=== PATIENT | male | born 1945 | race Caucasian/White ===

== ENCOUNTER → 2016-08-23 | Outpatient (CLI) | payer OTHER ==
[~2016-08-23] MED LIST: ACET-1256 PO; AMLO-110 PO; ASPI-435 PO; ATOR-24 PO; CMD/25 PO; CMD25 PO; ENOX40IN SQ; FINA5TAB PO; FLM4 PO; LISI40TA PO; METO25TA56 PO; PRS5 PO; TAMS0.4C38 PO; WARF-285 PO
[2016-08-23 09:35] LABS: BASO % 0.8 %; BASO ABS # 0.05 K/uL (0-0.2); COMPLETE YES; EOS % 5.5 %; HEMATOCRIT 40.6 % (42-52); IG% 0.2 %; LYMPH % 22.5 %; LYMPH ABS # 1.39 K/uL (1.2-3.4); MEAN CELL VOLUME 91.6 fL (80-100); MEAN CORPUSCULAR HEMOGLOBIN 30.2 pg (25-34); MEAN PLATELET VOLUME 10.1 fL (7.4-10.4); MONO % 8.9 %; NEUT % 62.1 %; PLATELET COUNT 135 K/uL (130-400); RED BLOOD COUNT 4.43 M/uL (4.7-6.1); WHITE BLOOD COUNT 6.19 K/uL (4.8-10.8)
[2016-08-23 10:06] LABS: ALT/SGPT 25 U/L (12-78); AST/SGOT 20 U/L (15-37); BLOOD UREA NITROGEN 28 mg/dl (7-18); BUN/CREATININE RATIO 23.4 (10-20); CALCIUM 8.6 mg/dl (8.5-10.1); CARBON DIOXIDE 28 mmol/L (21-32); CHLORIDE 107 mmol/L (98-107); GLUCOSE 99 mg/dl (70-99); POTASSIUM 4.4 mmol/L (3.5-5.1); SODIUM 142 mmol/L (136-145)
[2016-08-23 10:16] LABS: ALB/GLOB RATIO 1.1 (0.9-2); ALKALINE PHOSPHATASE 91 U/L (45-117); CHOLESTEROL 137 mg/dl (0-200); CHOLESTEROL/HDL RATIO 3.6; HDL CHOLESTEROL 38 mg/dl; LDL CHOLESTEROL CALCULATED 57 mg/dl; TRIGLYCERIDES 208 mg/dl (0-150); URIC ACID 7.1 mg/dl (2.6-7.2); VERY LOW DENSITY LIPOPROT CALC 42 mg/dl
== END | disposition home or self-care (01) ==
LOC: C.LAB 08:48
PROVIDERS: ATTEND Internal Medicine Geriatric Medicine
DX: I10 Essential (primary) hypertension (principal); I25.10 Atherosclerotic heart disease of native coronary artery without angina pectoris; E78.5 Hyperlipidemia, unspecified; D64.9 Anemia, unspecified; M10.9 Gout, unspecified; D69.6 Thrombocytopenia, unspecified; Z51.81 Encounter for therapeutic drug level monitoring; Z79.01 Long term (current) use of anticoagulants

== ENCOUNTER → 2017-01-05 | Day surgery (SDC) | payer OTHER ==
[2016-12-22 07:42] VITALS: Ht 162.6 cm; Wt 100.0 kg
[~2017-01-05] VITALS: Ht 162.6 cm; Wt 100.0 kg
[~2017-01-05] MED LIST changes: -CMD/25 PO; -FLM4 PO; +LIDOCAINE HCL 2% 2 ML VIAL (20MG/ML) ONE; +PROPOFOL IV EMULSION 10 MG/ML 20 ML VIAL IV ONE; -PRS5 PO; +SODIUM CHLORIDE 0.9% 500ML 500 ML IV ONE; -WARF-285 PO
--- NOTE | 2017-01-05 12:57 | Endo History and Physical ---
History & Physical Date of Service: Jan 05, 2017. Chief Complaint: History of polyps Referring Physician: Meir Marte History of Present Illness 71 yo CM who presents for colonoscopy secondary to history of colon polyps. Past Medical History Fractures, Male Genitourinary Prob., Pulmonary Emboli, Reflux, Blood Dyscrasias , High Cholesterol, Sleep Apnea, Heart Disease, Hypertension, Thrombophlebitis Past Surgical History Hx Cardiac Surgery: Yes (HEART CATH, NO STENTS) Hx Internal Defibrillator: No Hx Pacemaker: No Hx Abdominal Surgery: Yes (HERNIA REPAIR X3) Hx of Implantable Prosthesis: No Hx Post-Op Nausea and Vomiting: No Hx Cancer Surgery: No Hx Thoracic Surgery: Yes ("RIB RENITA") Hx Orthopedic: Yes (LT KNEE SX) Hx Urinary Tract Surgery: No Family History Polyp Social History Smoking Status: Never Smoker Hx Substance Use: No Hx Alcohol Use: No Allergies Coded Allergies: Diphenhydramine (Verified Allergy, Unknown, LIGHTHEADEDNESS, 12/22/16) Acetaminophen (Verified Adverse Reaction, Mild, RASH, 12/22/16) Celecoxib (Verified Adverse Reaction, Mild, LIGHTHEADEDNESS, 12/22/16) Doxycycline (Verified Adverse Reaction, Mild, GI SYMPTOMS, 12/22/16) Propoxyphene (Verified Adverse Reaction, Mild, RASH, 12/22/16) Escitalopram (Unverified Adverse Reaction, Unknown, PT DOESN'T REMEMBER REACTION, 12/22/16) Venlafaxine (Unverified Adverse Reaction, Unknown, PT DOESN'T REMEMBER REACTION, 12/22/16) Current Medications Reported Home Medications Medications Dose Route/Sig Max Daily Dose Days Date Category Flomax (Tamsulosin Hcl) 0.4 Mg Cap 0.4 Mg PO QPM 12/22/16 Reported Proscar (Finasteride) 5 Mg Tab 5 Mg PO QAM 12/22/16 Reported Tylenol (Acetaminophen) 500 Mg Tab 1,000 Mg PO TID PRN 12/22/16 Reported Lopressor (Metoprolol Tartrate) 25 Mg Tab 25 Mg PO BID 12/09/15 Reported Aspirin 81 (Aspirin) 81 Mg Tab 81 Mg PO QPM 06/30/14 Reported Coumadin (Warfarin Sod) 2.5 Mg Tab 2.5 Mg PO QPM 06/30/14 Reported Zestril (Lisinopril) 40 Mg Tab 40 Mg PO QAM 01/15/11 Reported Lipitor (Atorvastatin Calcium) 40 Mg Tab 40 Mg PO QPM 01/15/11 Reported Norvasc (Amlodipine Besylate) 5 Mg Tab 5 Mg PO QPM 01/15/11 Reported Vital Signs Weight (Kilograms): 100 Height (Feet): 5 Height (Inches): 4 Physical Exam General Appearance: WD/WN, no apparent distress Respiratory/Chest: Auscultation: breath sounds normal Cardiovascular: Heart Auscultation: RRR Abdomen: Bowel Sounds: normal Inspection & Palpation: soft, non-distended, no tenderness, guarding & rebound Assessment and Plan Assessment: 71 yo CM who presents for colonoscopy secondary to history of colon polyps. Plan: Proceed with colonoscopy.
[2017-01-05 13:08] VITALS: TEMP 36.6
--- NOTE | 2017-01-05 14:08 | Discharge Instructions ---
Endoscopy Patient Instructions Date / Procedure(s) Performed Jan 05, 2017. Colonoscopy Allergy Information Coded Allergies: Diphenhydramine (Verified Allergy, Unknown, LIGHTHEADEDNESS, 12/22/16) Acetaminophen (Verified Adverse Reaction, Mild, RASH, 12/22/16) Celecoxib (Verified Adverse Reaction, Mild, LIGHTHEADEDNESS, 12/22/16) Doxycycline (Verified Adverse Reaction, Mild, GI SYMPTOMS, 12/22/16) Propoxyphene (Verified Adverse Reaction, Mild, RASH, 12/22/16) Escitalopram (Verified Adverse Reaction, Unknown, PT DOESN'T REMEMBER REACTION, 01/05/17) Venlafaxine (Verified Adverse Reaction, Unknown, PT DOESN'T REMEMBER REACTION, 01/05/17) Discharge Date / Findings Jan 05, 2017. Colon polyps Diverticulosis Internal hemorrhoids Medication Instructions Stopped Medication(s): last dose ASA yesterday,lat dose coumadin 12/31,bridged with Lovenox,last dose yesterday am OK to resume all medications today as prescribed Reported Home Medications Medications Dose Route/Sig Max Daily Dose Days Date Category Lovenox (Enoxaparin Sodium) 40 Mg/0.4 Ml Inj 40 Mg SQ DAILY 01/05/17 Reported Flomax (Tamsulosin Hcl) 0.4 Mg Cap 0.4 Mg PO QPM 12/22/16 Reported Proscar (Finasteride) 5 Mg Tab 5 Mg PO QAM 12/22/16 Reported Tylenol (Acetaminophen) 500 Mg Tab 1,000 Mg PO TID PRN 12/22/16 Reported Lopressor (Metoprolol Tartrate) 25 Mg Tab 25 Mg PO BID 12/09/15 Reported Aspirin 81 (Aspirin) 81 Mg Tab 81 Mg PO QPM 06/30/14 Reported Coumadin (Warfarin Sod) 2.5 Mg Tab 2.5 Mg PO QPM 06/30/14 Reported Zestril (Lisinopril) 40 Mg Tab 40 Mg PO QAM 01/15/11 Reported Lipitor (Atorvastatin Calcium) 40 Mg Tab 40 Mg PO QPM 01/15/11 Reported Norvasc (Amlodipine Besylate) 5 Mg Tab 5 Mg PO QPM 01/15/11 Reported Provider Instructions Activity Restrictions - No exercising or heavy lifting for 24 hours. - Do not drink alcohol the day of the procedure. - Do not drive a car or operate machinery until the day after the procedure. - Do not make any important decisions or sign important papers in 24 hours after the procedure. Following Day: - Return to full activity which may include returning to work/school. Diet Start your diet with liquids and light foods (jello, soup, juice, toast). Then eat your usual diet if not nauseated. Treatment For Common After Affects For mild abdominal pain, bloating, or excessive gas: - Rest - Eat lightly - Lie on right side Follow-Up Information Follow-up with Dr. Meir Marte as scheduled Anesthesia Information What You Should Know You have had a procedure that required some medicine to reduce anxiety and discomfort. This treatment is called moderate sedation. After receiving the treatment, you may be sleepy, but you will be able to breathe on your own. The effects of the treatment may last for several hours. Follow these instructions along with Activity/Diet recommendations noted above: * Do NOT do anything where dizziness or clumsiness would be dangerous. * Rest quietly at home today, then you can be up and about tomorrow. * Have a responsible person stay with you the rest of today. * You may have had an I.V. today. If so, you may take the dressing off later today. Recommendations Call your doctor if: * Trouble breathing * Continuous vomiting for more than 24 hours * Temperature above 101 degrees * Severe abdominal pain or bloating * Pain not relieved by pain medicine ordered * There is increased drainage or redness from any incision * A large amount of rectal bleeding greater than 2-3 tablespoons. (If you had a polyp/s removed or have hemorrhoids, a small amount of blood - from the rectum is to be expected.) * You have any unanswered questions or concerns. IN THE EVENT OF A SERIOUS EMERGENCY, GO TO THE NEAREST EMERGENCY ROOM Your discharge instructions were prepared by provider Sean Shearer. Patient Instructions Signature Page Bhaskar Ospina Patient (or Guardian) Signature/Date: I have read and understand the instructions given to me by my caregivers. Caregiver/RN/Doctor Signature/Date: The above-named patient and/or guardian has received patient instructions on this date. + Original Patient Signature Page (only) stays with chart. Please make copy for patient.
[2017-01-05 14:39] VITALS: BP 142/66; PULSE 72; O2SAT 96
--- NOTE | 2017-01-05 14:48 | GI REPORT ---
Procedure Date: 01/05/2017 1:41 PM Procedure: Colonoscopy Indications: High risk colon cancer surveillance: Personal history of colonic polyps Medicines: Monitored Anesthesia Care Complications: No immediate complications. Estimated Blood Loss: Estimated blood loss: none. Procedure: Pre-Anesthesia Assessment: - Prior to the procedure, a History and Physical was performed, and patient medications and allergies were reviewed. The patient's tolerance of previous anesthesia was also reviewed. The risks and benefits of the procedure and the sedation options and risks were discussed with the patient. All questions were answered, and informed consent was obtained. Prior Anticoagulants: The patient last took aspirin 1 day, Coumadin (warfarin) 5 days and Lovenox (enoxaparin) 1 day prior to the procedure. ASA Grade Assessment: III - A patient with severe systemic disease. After reviewing the risks and benefits, the patient was deemed in satisfactory condition to undergo the procedure. After I obtained informed consent, the scope was passed under direct vision. Throughout the procedure, the patient's blood pressure, pulse, and oxygen saturations were monitored continuously. The Scope was introduced through the anus and advanced to the terminal ileum. The colonoscopy was performed without difficulty. The patient tolerated the procedure well. The quality of the bowel preparation was good. The terminal ileum, ileocecal valve, appendiceal orifice, and rectum were photographed. Findings: Two sessile polyps were found in the sigmoid colon and in the ascending colon. The polyps were 5 to 6 mm in size. These polyps were removed with a hot snare. Resection and retrieval were complete. Multiple small-mouthed diverticula were found in the sigmoid colon. Non-bleeding internal hemorrhoids were found during retroflexion. The hemorrhoids were small. Impression: - Two 5 to 6 mm polyps in the sigmoid colon and in the ascending colon, removed with a hot snare. Resected and retrieved. - Diverticulosis in the sigmoid colon. - Non-bleeding internal hemorrhoids. Recommendation: - Resume previous diet. - Continue present medications. - Repeat colonoscopy for surveillance based on pathology results. - Return to primary care physician as previously scheduled. Sean Shearer DO 01/05/2017 2:47:27 PM This report has been signed electronically. Note Initiated On: 01/05/2017 1:41 PM I attest to the content of the Intraoperative Record and orders documented therein, exceptions below
--- NOTE | 2017-01-05 14:52 | Anesthesiology Progress Note ---
Anesthesia Post Op Note Date & Time Jan 05, 2017 at 14:52 Vital Signs Pain Intensity: 0 Vital Signs Past 12 Hours Date Time Temp Pulse Resp B/P (MAP) Pulse Ox O2 Delivery O2 Flow Rate FiO2 01/05/17 14:39 72 20 142/66 (91) 96 Room Air 01/05/17 14:24 68 20 127/64 (85) 95 Room Air 01/05/17 14:09 71 20 108/57 (74) 97 Room Air 01/05/17 13:08 36.6 72 20 146/68 (94) 94 Room Air Notes Mental Status: alert / awake / arousable, participated in evaluation Pt Amnestic to Procedure: Yes Nausea / Vomiting: adequately controlled Pain: adequately controlled Airway Patency, RR, SpO2: stable & adequate BP & HR: stable & adequate Hydration State: stable & adequate Anesthetic Complications: no major complications apparent
== END | disposition home or self-care (01) ==
LOC: C.GI 12:08
PROVIDERS: ATTEND Internal Medicine
DX: Z12.11 Encounter for screening for malignant neoplasm of colon (principal); Z86.010 Personal history of colon polyps; D12.5 Benign neoplasm of sigmoid colon; D12.8 Benign neoplasm of rectum; D12.2 Benign neoplasm of ascending colon; K64.8 Other hemorrhoids; K57.30 Diverticulosis of large intestine without perforation or abscess without bleeding; E78.00 Pure hypercholesterolemia, unspecified; G47.30 Sleep apnea, unspecified; I10 Essential (primary) hypertension; Z79.82 Long term (current) use of aspirin; Z79.899 Other long term (current) drug therapy

== ENCOUNTER → 2017-02-04 | Outpatient (CLI) | payer OTHER ==
[~2017-02-04] MED LIST changes: -LIDOCAINE HCL 2% 2 ML VIAL (20MG/ML) ONE; -PROPOFOL IV EMULSION 10 MG/ML 20 ML VIAL IV ONE; -SODIUM CHLORIDE 0.9% 500ML 500 ML IV ONE
--- NOTE | 2017-02-04 11:44 | DIAGNOSTIC IMAGING REPORT ---
ULTRASOUND KIDNEYS AND BLADDER CLINICAL HISTORY: Hydronephrosis. COMPARISON STUDY: Abdominal CT dated 01/31/2017. TECHNIQUE: Real-time, grayscale, and color flow sonography of the kidneys and bladder is performed. Images are reviewed in the transverse and longitudinal planes. FINDINGS: Kidneys: The kidneys demonstrate cortical atrophy. The right kidney measures 11.8 x 6.1 x 4.9 cm and the left kidney measures 12.0 x 5.1 x 5.4 cm. There is moderate bilateral hydroureteronephrosis, left slightly greater than right. The dilated ureters appear to extend into the right inguinal region. No shadowing renal calculi are identified. There is no sonographic evidence of contour deforming renal mass lesion. No perinephric fluid is identified. Bladder: The bladder is located within a right inguinal hernia. Prominent folds are noted within the bladder wall. Ureteral jets were not seen. IMPRESSION: 1. The kidneys demonstrate cortical atrophy. 2. There is moderate bilateral hydroureteronephrosis. 3. The bladder is located almost entirely within a right inguinal hernia . The dilated ureters also extend into the right internal hernia. 4. These findings have not significantly changed from the 01/31/[address] scan. Electronically signed by: Leo Hernandez M.D. 02/04/2017 11:43 AM Dictated Date/Time: 02/04/2017 11:35 AM
== END | disposition home or self-care (01) ==
LOC: C.ULTR 08:39
PROVIDERS: ATTEND Urology
DX: N13.30 Unspecified hydronephrosis (principal); N26.1 Atrophy of kidney (terminal); K40.90 Unilateral inguinal hernia, without obstruction or gangrene, not specified as recurrent

== ENCOUNTER → 2017-03-02 | Outpatient (CLI) | payer OTHER ==
[~2017-03-02] MED LIST changes: +CMD/25 PO; -ENOX40IN SQ
[2017-03-02 10:12] LABS: BASO % 0.5 %; BASO ABS # 0.03 K/uL (0-0.2); COMPLETE YES; EOS % 1.7 %; HEMATOCRIT 38.3 % (42-52); IG% 0.2 %; LYMPH % 21.2 %; MEAN CELL VOLUME 92.5 fL (80-100); MEAN CORPUSCULAR HEMOGLOBIN 30.2 pg (25-34); MEAN CORPUSCULAR HGB CONC 32.6 g/dl (32-36); MONO % 9.2 %; NEUT % 67.2 %; PLATELET COUNT 137 K/uL (130-400); RED BLOOD COUNT 4.14 M/uL (4.7-6.1); WHITE BLOOD COUNT 6.61 K/uL (4.8-10.8)
[2017-03-02 10:53] LABS: BLOOD UREA NITROGEN 18 mg/dl (7-18); BUN/CREATININE RATIO 17.4 (10-20); CALCIUM 8.4 mg/dl (8.5-10.1); CARBON DIOXIDE 31 mmol/L (21-32); CHLORIDE 108 mmol/L (98-107); CREATININE 1.03 mg/dl (0.60-1.40); GLUCOSE 110 mg/dl (70-99); POTASSIUM 4.4 mmol/L (3.5-5.1); SODIUM 144 mmol/L (136-145)
== END | disposition home or self-care (01) ==
LOC: C.LAB 09:11
PROVIDERS: ATTEND Internal Medicine Geriatric Medicine
DX: I10 Essential (primary) hypertension (principal); D64.9 Anemia, unspecified

== ENCOUNTER 2017-05-17 05:59 | Observation (INO) | payer OTHER ==
[2017-05-10 10:09] VITALS: Ht 172.7 cm; Wt 104.1 kg
--- NOTE | 2017-05-10 10:50 | PAT Medication Instructions ---
Service Date May 10, 2017. Current Home Medication List Acetaminophen (Tylenol), 1,000 MG PO TID PRN for Pain Amlodipine (Norvasc), 5 MG PO QPM Aspirin (Aspirin 81), 81 MG PO QPM Atorvastatin (Lipitor), 40 MG PO QPM Calcium Carbonate-Vitamin D (Calcium + D), 1 TAB PO BID Finasteride (Proscar), 5 MG PO QAM Lisinopril (Zestril), 40 MG PO QAM Metoprolol Tartrate (Lopressor) (Lopressor), 25 MG PO BID Tamsulosin Hcl (Flomax), 0.4 MG PO QPM Warfarin Sod (Coumadin), 2.5 MG PO QPM Medication Instructions For Your Scheduled Surgery - Check with surgeon and prescribing physician for instructions: Warfarin Sod (Coumadin), 2.5 MG PO QPM Aspirin (Aspirin 81), 81 MG PO QPM - Hold the following medications the morning of surgery: Calcium Carbonate-Vitamin D (Calcium + D), 1 TAB PO BID Finasteride (Proscar), 5 MG PO QAM Lisinopril (Zestril), 40 MG PO QAM Tamsulosin Hcl (Flomax), 0.4 MG PO QPM - Take the following medications the morning of surgery with a sip of water: Metoprolol Tartrate (Lopressor) (Lopressor), 25 MG PO BID Acetaminophen (Tylenol), 1,000 MG PO TID PRN for Pain (okay to take up to 4 hours prior to surgery if needed) - Take the following medications as scheduled the night before surgery: Metoprolol Tartrate (Lopressor) (Lopressor), 25 MG PO BID Calcium Carbonate-Vitamin D (Calcium + D), 1 TAB PO BID Atorvastatin (Lipitor), 40 MG PO QPM Amlodipine (Norvasc), 5 MG PO QPM Acetaminophen (Tylenol), 1,000 MG PO TID PRN for Pain (if needed) If you have any questions please call us at [phone] or [phone] or [phone]
[2017-05-10 12:19] LABS: BASO % 0.3 %; BASO ABS # 0.02 K/uL (0-0.2); EOS % 1.4 %; EOS ABS # 0.09 K/uL (0-0.5); HEMATOCRIT 37.7 % (42-52); HEMOGLOBIN 12.7 g/dL (14.0-18.0); IG# 0.01 K/uL (0.00-0.02); LYMPH % 21.6 %; LYMPH ABS # 1.37 K/uL (1.2-3.4); MEAN CELL VOLUME 90.4 fL (80-100); MEAN CORPUSCULAR HEMOGLOBIN 30.5 pg (25-34); MEAN CORPUSCULAR HGB CONC 33.7 g/dl (32-36); MEAN PLATELET VOLUME 10.1 fL (7.4-10.4); MONO % 9.6 %; MONO ABS # 0.61 K/uL (0.11-0.59); NEUT % 66.9 %; NEUT ABS # 4.25 K/uL (1.4-6.5); PLATELET COUNT 143 K/uL (130-400); RED CELL DISTRIBUTION WIDTH CV 14.2 % (11.5-14.5); RED CELL DISTRIBUTION WIDTH SD 46.8 fL (36.4-46.3); WHITE BLOOD COUNT 6.35 K/uL (4.8-10.8)
--- NOTE | 2017-05-10 12:32 | DIAGNOSTIC IMAGING REPORT ---
TWO VIEW CHEST CLINICAL HISTORY: Preoperative examination. FINDINGS: PA and lateral chest radiographs are compared to study dated 10/12/2011. Correlation is made with chest CT dated 02/14/2011. The PA view is degraded by patient rotation. The heart is enlarged and there is atherosclerotic calcification of the thoracic and. The pulmonary vasculature is noncongested. Chronic interstitial thickening is similar to previous, as is chronic elevation of the right hemidiaphragm. Bibasilar atelectasis is noted. There is no airspace consolidation typical for pneumonia or pleural effusion. There is no pneumothorax. The skeletal structures are osteopenic. Degenerative change is seen throughout the thoracic spine. There are numerous healed bilateral rib fractures IMPRESSION: Cardiomegaly and chronic parenchymal changes as above. No acute cardiopulmonary abnormality is identified. Electronically signed by: Leo Hernandez M.D. 05/10/2017 12:30 PM Dictated Date/Time: 05/10/2017 12:29 PM
[2017-05-10 13:54] LABS: CALCIUM 8.8 mg/dl (8.5-10.1); CREATININE 1.16 mg/dl (0.60-1.40); POTASSIUM 4.5 mmol/L (3.5-5.1)
[2017-05-17] VITALS (9 sets, daily range): BP systolic 102–146; BP diastolic 59–70; PULSE 42–93; TEMP 36.6–37; O2SAT 93–97
[~2017-05-17] VITALS: Ht 172.7 cm; Wt 104.1 kg
[~2017-05-17 05:59] MED LIST changes: +CALC600T9 PO; -CMD/25 PO
[2017-05-17] MEDS ORDERED: BACITRACIN 50000 UNIT VIAL ONE (07:06)
[2017-05-17] MEDS ORDERED: BUPIVACAINE 0.5 % 5 MG/1 ML MPF 30ML VIAL ONE (07:06)
--- NOTE | 2017-05-17 07:08 | History & Physical Bridge Note ---
H&P Re-Evaluation Bridge Note: I have examined the patient, reviewed the History & Physical and in the interval since the performance of the History & Physical I have noted the following changes of clinical significance: No changes noted pt marked family at bedside on Lovenox past history of MRSA will get nasal swab off coumadin for one week
[2017-05-17 07:09] LABS: INR 1.2 (0.9-1.1); PTT PATIENT 25.5 SECONDS (21.0-31.0)
[2017-05-17] MEDS ORDERED: ONDANSETRON INJ 2 MG/ML 2 ML VIAL IV PRN ×2 (08:30→10:15)
[2017-05-17] MEDS ORDERED: ATROPINE SULFATE 0.1 MG/ML 5ML SYR IV PRN (08:30)
[2017-05-17] MEDS ORDERED: EpHEDrine SULFATE INJ 50 MG/ML AMP IV PRN (08:30)
[2017-05-17] MEDS ORDERED: FENTANYL CITRATE INJ 50 MCG/1 ML 2 ML VIAL IV PRN (08:30)
[2017-05-17] MEDS ORDERED: HYDROmorphone INJ 1 MG/ML SYR IV PRN (08:30)
--- NOTE | 2017-05-17 10:04 | [facility] Post Operative Brief Note ---
Immediate Operative Summary Operative Date May 17, 2017. Pre-Operative Diagnosis Right Inguinal hernia with bladder contents rec Post-Operative Diagnosis incarcerated right direct hernia and lipoma cord Procedure(s) Performed Open Right Inguinal Hernia Repair with Tension Free Marlex Mesh, Incision of Lipoma of the Cord Surgeon Dr. Ulloa Hand Spring Repairer Surgeon(s) Kayla Soni PA-C Estimated Blood Loss 100 ml Findings See Below incarcerated bladder in direct rec hernia and lipoma cord Specimens Micro #1 Urinalysis, culture and sensitivity if indicated. Sent at [id number] Permanent specimens A: Lipoma of Cord Anesthesia Type General
[2017-05-17] MEDS ORDERED: MoRPHine SULFATE 4 MG/ML 1 ML CARP\\VIAL IV PRN (10:15)
[2017-05-17] MEDS ORDERED: OXYCODONE/ACETAMINOPHEN 5-325 TAB PO PRN (10:15)
[2017-05-17] MEDS ORDERED: MoRPHine SULFATE 2 MG/ML CARP IV PRN ×2 (10:15)
--- NOTE | 2017-05-17 10:29 | Discharge Instructions ---
Discharge Instructions Date of Service May 17, 2017. Admission Reason for Admission: Right Inguinal Hernia Discharge Discharge Diagnosis / Problem: Right Inguinal Hernia Discharge Goals Goal(s): Decrease discomfort, Improve function Activity Recommendations Activity Limitations: as noted below Lifting Limitations: no more than 10 pounds Exercise/Sports Limitations: until after follow-up appointment May Resume Sexual Activity: after follow-up appointment Shower/Bathe: no limitations Driving or Machine Use: resume 1 day after discharge . Instructions / Follow-Up Instructions / Follow-Up Please follow-up with Dr. Ulloa in the general surgery clinic in 1 week to have catheter removed . Please call the office at [phone] to schedule an appointment if you do not have one already. Please call the office with any questions or concerns. Current Hospital Diet Patient's current hospital diet: Clear Liquid Diet Discharge Diet Recommended Diet: Regular Diet Procedures Procedures Performed: Open Right Inguinal Hernia Repair with Tension Free Marlex Mesh, Incision of Lipoma of the Cord Pending Studies Studies pending at discharge: yes List of pending studies: Pathology report. Medical Emergencies . Who to Call and When: Medical Emergencies: If at any time you feel your situation is an emergency, please call 911 immediately. . Non-Emergent Contact Non-Emergency issues call your: Primary Care Provider, Surgeon Call Non-Emergent contact if: temperature is above 101.5, your pain is not controlled, wound has increased drainage, wound has increased redness . "Provider Documentation" section prepared by Kayla Gregory. . VTE Core Measure Inpt VTE Proph given/why not?: Enoxaparin (Lovenox)SQ, SCD's [place] Drug Monitoring Program Search Results: patient reviewed within database, no issues identified
[2017-05-17] MEDS ORDERED: ACETAMINOPHEN 500 MG TAB PO PRN (10:30)
[2017-05-17] MEDS ORDERED: FENTANYL CITRATE INJ 50 MCG/1 ML 2 ML VIAL ONE (11:05)
[2017-05-17] MEDS ORDERED: IV FLUIDS COMPLETED PRN (11:15)
[2017-05-17] MEDS ORDERED: HYDROmorphone INJ 2 MG/ML SYR/VIAL ONE (11:28)
[2017-05-17] MEDS ORDERED: ETOMIDATE 2 MG/ML 20 ML VIAL IV ONE (11:42)
--- NOTE | 2017-05-17 12:10 | Anesthesiology Progress Note ---
Anesthesia Post Op Note Date & Time May 17, 2017 at 12:10 Vital Signs Pain Intensity: 5 Vital Signs Past 12 Hours Date Time Temp Pulse Resp B/P (MAP) Pulse Ox O2 Delivery O2 Flow Rate FiO2 05/17/17 11:55 74 18 121/64 93 Nasal Cannula 2 05/17/17 11:45 63 12 117/61 93 Nasal Cannula 2 05/17/17 11:35 68 18 111/52 94 Nasal Cannula 2 05/17/17 11:20 59 16 129/66 94 Nasal Cannula 2 05/17/17 11:10 37 60 16 132/65 94 Nasal Cannula 2 05/17/17 11:00 37 68 16 138/70 95 Nasal Cannula 2 05/17/17 10:50 37 69 16 137/79 95 Nasal Cannula 2 05/17/17 10:40 71 16 140/77 96 Nasal Cannula 2 05/17/17 10:30 60 16 133/67 99 Oxymask 10 05/17/17 10:20 58 16 132/70 98 Oxymask 10 05/17/17 10:13 37.2 54 16 121/63 97 Oxymask 10 05/17/17 06:30 37 42 18 146/70 (95) 93 Room Air Notes Mental Status: alert / awake / arousable, participated in evaluation Pt Amnestic to Procedure: Yes Nausea / Vomiting: adequately controlled Pain: adequately controlled Airway Patency, RR, SpO2: stable & adequate BP & HR: stable & adequate Hydration State: stable & adequate Anesthetic Complications: no major complications apparent Doing well, pain controlled, VSS at baseline.
[2017-05-17] MEDS: OXYCODONE/ACETAMINOPHEN 5-325 TAB PO PRN ×2 (13:49→23:39)
[2017-05-17] MEDS: LACTATED RINGER'S 1000ML 1,000 ML IV SCH ×3 (17:21→23:38)
[2017-05-17 17:59] LABS: HEMATOCRIT 38.1 % (42-52); HEMOGLOBIN 12.9 g/dL (14.0-18.0)
[2017-05-17] MEDS ORDERED: NURSING VERBAL MED ORDER ONE (18:15)
[2017-05-17] MEDS ORDERED: WARFARIN SOD 5 MG TAB PO ONE (18:30)
--- NOTE | 2017-05-17 19:02 | OPERATIVE REPORT ---
DATE OF OPERATION: 05/17/2017 SURGEON: Alvarado Ulloa MD INTERNET SALESPERSON: Kayla Gregory PA-C PREOPERATIVE DIAGNOSIS: Recurrent right inguinal hernia with bladder contents. POSTOPERATIVE DIAGNOSES: Recurrent direct incarcerated inguinal hernia and a lipoma of the cord. PROCEDURE: Open repair of the right recurrent direct inguinal hernia and excision of the lipoma of the cord with Marlex mesh tension free repair. SUMMARY: The patient was brought into the operating room theater. Right lower quadrant was prepped with Betadine scrubbing solution and properly draped after shaving. A Mccabe catheter had been inserted since we knew that the patient had bladder contents down in this large hernia that appeared to be going down the scrotal area. At this point, preemptive local analgesia 1% Xylocaine without epinephrine and 2 fingerbreadths medial anterior superior iliac crest. We made an incision, which was above the incision that he had before since this was drapiing down almost in this large panniculus. We palpated the symphysis pubis area and then from the iliac crest, we made a sort of an oblique incision extending about 3 inches or so long, deepened through the subcutaneous tissue, which was quite prominent and some larger vessels were ligated. We then entered through the abdominal wall laterally, identified the external oblique. We had significant subcutaneous tissue that the regular retractors would not be sufficient, a Gelpi. Therefore we asked for Forbes-O'Quiros placed within the wound. At this point, we started dissection distally towards the symphysis pubis and dissecting bluntly, we were able to identify and free the subcutaneous tissue up to the Jennifer's fascia and were able to see that the patient had a significant amount of tissue incarcerated going down to the upper thigh and above the symphysis pubis. We at this point used dissection to free up all these from the subcutaneous tissue and we were met with a large content, what appeared to be bladder as described that extended down and beyond the canal for about 20 cm or so. The diameter of this protrusion, which was eventually would be a direct hernia was about 6 cm. Having freed this up, we then were able to free up the cord from this mass and elevate that over a Freeman drain. The patient had a large lipoma that we did eventually resect afterwards. Our attention was turned to this large mass that was protruding through an opening that was quite small, right at the symphysis pubis area as one would expect a recurrent hernia to be. At this point, I needed to open up the direct area more sufficient enough that I was able to partially reduce the hernia contents. We were able then to enter the hernial sac and reduce all the contents back into the abdomen. I did not dissect out the bladder or the omentum from this area. We reduced in total. The opening once we were able then to reduce everything in a direct area was approximately 3 cm or so. I dissected inferiorly to the symphysis pubis and Ha's ligament and also the remnants of the shelving portion of the inguinal ligament at the attachment sufficient enough that I closed the defect with interrupted #1 PDS approximating the transversalis fascia and conjoined tendon. I took the dissection as close as to get the contents out of the operative field. Our attention was turned to the indirect area where we dissected out and found a very large lipoma of the cord that we resected, ligating the base with 2-0 silk. There was no indirect hernia. The indirect ring was not terribly dilated. I then dissected out more towards the symphysis pubis to free up some scar tissue that had accumulated right above the symphysis pubis on the right side. We used mostly blunt dissection in that area with electrocautery. I brought a sheet of Marlex mesh onto the field and sutured it above on the conjoined tendon, symphysis pubis and inferiorly first around to the shelving portion of the inguinal ligament, the remnant of it, all the way around to reconstruct the internal ring that could only accommodate the tip of a hemostat. The fascia was loose. We had a 3 x 5 inch mesh that we cut appropriately. We checked the area for hemostasis and appeared satisfactory. There was really no way to close over the external oblique fascia on the cord and its structures and the mesh; therefore, we returned the cord on top of the mesh and closed the subcutaneous tissue with 2-0 running Dexon. I did elect to drain the area with a 15 Maurice drain that was brought inferior to the incision and placed along the operative field due to the fact that the patient had been on Lovenox and to be continued. We will take it out in the morning. An interrupted 2-0 Vicryl suture was used to approximate the subcutaneous tissue and michelle for skin edges. Dressing was applied. The procedure was tolerated well and we had a moderate amount of oozing throughout the procedure due to the significance of our dissection, which was quite extensive. Estimated blood loss approximately 100 mL. I attest to the content of the Intraoperative Record and any orders documented therein. Any exceptions are noted below. MTDD
[2017-05-17] MEDS: CALCIUM 600MG + VIT D 400 IU TAB PO SCH (20:43)
[2017-05-17] MEDS: METOPROLOL TARTRATE 25 MG TAB PO SCH (20:46)
[2017-05-17] MEDS ORDERED: AMLODIPINE BESYLATE 5 MG TAB PO SCH (21:00)
[2017-05-17] MEDS ORDERED: ATORVASTATIN 20 MG TAB PO SCH (21:00)
[2017-05-17] MEDS ORDERED: TAMSULOSIN HCL 0.4 MG CAP PO SCH (21:00)
[2017-05-18 03:40] VITALS: BP 130/60; PULSE 75; TEMP 36.9; O2SAT 96
[2017-05-18] MEDS: LACTATED RINGER'S 1000ML 1,000 ML IV SCH (05:30)
[2017-05-18] MEDS ORDERED: OXYC-57 PO (07:46)
--- NOTE | 2017-05-18 07:48 | Surgery Progress Note ---
Surgery Progress Note Date of Service May 18, 2017. Subjective Post OP Day: 1 + feeling well, + pain controlled, + diet (liquids), No nausea Objective Vital Signs: Date Time Temp Pulse Resp B/P (MAP) Pulse Ox O2 Delivery O2 Flow Rate FiO2 05/18/17 03:40 36.9 75 17 130/60 (83) 96 Nasal Cannula 2.0 05/17/17 23:40 Nasal Cannula 2.0 05/17/17 23:22 36.8 91 16 132/66 (88) 97 Nasal Cannula 2.0 05/17/17 20:48 52 125/64 (84) 05/17/17 20:08 36.8 93 17 115/59 (77) 95 Room Air 05/17/17 16:00 96 Nasal Cannula 2.0 05/17/17 14:29 36.7 58 16 113/68 (83) 96 Nasal Cannula 2.0 05/17/17 13:15 36.6 58 18 113/59 (77) 93 Nasal Cannula 2.0 05/17/17 12:45 36.6 61 16 102/62 (75) 96 Nasal Cannula 2.0 05/17/17 12:30 Nasal Cannula 2.0 05/17/17 12:30 36.9 44 16 117/59 (78) 93 Nasal Cannula 2.0 05/17/17 12:15 Nasal Cannula 2.0 05/17/17 12:10 64 20 108/61 93 Nasal Cannula 2 05/17/17 11:55 74 18 121/64 93 Nasal Cannula 2 05/17/17 11:45 63 12 117/61 93 Nasal Cannula 2 05/17/17 11:35 68 18 111/52 94 Nasal Cannula 2 05/17/17 11:20 59 16 129/66 94 Nasal Cannula 2 05/17/17 11:10 37 60 16 132/65 94 Nasal Cannula 2 05/17/17 11:00 37 68 16 138/70 95 Nasal Cannula 2 05/17/17 10:50 37 69 16 137/79 95 Nasal Cannula 2 05/17/17 10:40 71 16 140/77 96 Nasal Cannula 2 05/17/17 10:30 60 16 133/67 99 Oxymask 10 05/17/17 10:20 58 16 132/70 98 Oxymask 10 05/17/17 10:13 37.2 54 16 121/63 97 Oxymask 10 Physical Exam: Maurice drainage (25 cc) Abdomen: soft Incision(s): clean, dry Laboratory Results: Results Past 24 Hours Test 05/17/17 07:58 05/17/17 17:49 05/18/17 07:38 Range/Units Urine Color YELLOW Urine Appearance CLEAR CLEAR Urine pH 5.5 4.5-7.5 Urine Specific [place] 1.017 1.000-1.030 Urine Protein NEG NEG Urine Glucose (UA) NEG NEG Urine Ketones NEG NEG Urine Occult Blood 1+ NEG Urine Nitrite NEG NEG Urine Bilirubin NEG NEG Urine Urobilinogen NEG NEG Urine Leukocyte Esterase NEG NEG Urine WBC (Auto) 1-5 0-5 /hpf Urine RBC (Auto) 5-10 0-4 /hpf Urine Hyaline Casts (Auto) 1-5 0-5 /lpf Urine Epithelial Cells (Auto) 20-30 0-5 /lpf Urine Bacteria (Auto) NEG NEG Hemoglobin 12.9 14.0-18.0 g/dL Hematocrit 38.1 42-52 % Microbiology Results 05/17/17 Urine Culture, Received Pending Assessment & Plan s/p repair large right inguinal hernia drain removed ok to resume Lovenox, coumadin given last night had urinary retention preop, will d/c home with reagan and remove in [address] Ulloa
[2017-05-18 07:58] LABS: HEMATOCRIT 34.1 % (42-52); IG# 0.03 K/uL (0.00-0.02); LYMPH % 6.2 %; LYMPH ABS # 0.72 K/uL (1.2-3.4); MEAN CELL VOLUME 89.5 fL (80-100); MEAN CORPUSCULAR HEMOGLOBIN 31.5 pg (25-34); MEAN CORPUSCULAR HGB CONC 35.2 g/dl (32-36); MEAN PLATELET VOLUME 9.9 fL (7.4-10.4); MONO % 7.7 %; MONO ABS # 0.89 K/uL (0.11-0.59); NEUT % 85.8 %; NEUT ABS # 9.97 K/uL (1.4-6.5); PLATELET COUNT 125 K/uL (130-400); RED CELL DISTRIBUTION WIDTH CV 14.2 % (11.5-14.5); RED CELL DISTRIBUTION WIDTH SD 46.5 fL (36.4-46.3); WHITE BLOOD COUNT 11.61 K/uL (4.8-10.8)
[2017-05-18 08:14] VITALS: BP 125/82; PULSE 70; TEMP 36.8; O2SAT 96
[2017-05-18 08:17] VITALS: O2SAT 96
--- NOTE | 2017-05-18 08:25 | DISCHARGE SUMMARY ---
PRIMARY DISCHARGE DIAGNOSES: Incarcerated right direct inguinal hernia and cord lipoma. SECONDARY DISCHARGE DIAGNOSES: 1. Hypertension. 2. Coronary artery disease. 3. Factor V Leiden mutation. 4. Hyperlipidemia. PROCEDURE PERFORMED: Open repair of right recurrent direct inguinal hernia and excision of cord lipoma. HOSPITAL COURSE: The patient is a 71-year-old male brought in through same day and taken to the operating room for repair of large recurrent right inguinal hernia. He was on Lovenox bridge. Given his age and comorbidities, he was admitted for overnight observation. Mccabe catheter was left in place postoperatively. He did well overnight. On postoperative day 1, he was tolerating diet and oral analgesics. Maurice drainage was 25 mL overnight and was removed. Wound was clean and dry. He did have some urinary retention preoperatively. We will plan to leave the Mccabe catheter for 1 week and remove it in the office. He was stable for discharge. DISCHARGE INSTRUCTIONS: Discharge home with Mccabe catheter. Follow up with the office in 1 week for removal of the catheter. DISCHARGE MEDICATIONS: Percocet 1-2 tablets every 4 hours as needed. Hold additional Tylenol while he is taking the Percocet. Resume all other home medications: Norvasc 5 mg daily, aspirin 81 mg daily, Lipitor 40 mg daily, calcium plus vitamin D supplement b.i.d., Proscar 5 mg daily, Zestril 40 mg daily, Lopressor 25 mg b.i.d., Flomax 0.4 mg daily, and Coumadin 2.5 mg daily, which was restarted on the day of surgery. He is also on Lovenox bridge 40 mg daily. Continue as directed by the [facility]. CARLIE
[2017-05-18 08:35] LABS: CALCIUM 8.1 mg/dl (8.5-10.1); CREATININE 1.11 mg/dl (0.60-1.40); POTASSIUM 4.2 mmol/L (3.5-5.1)
[2017-05-18] MEDS ORDERED: LISINOPRIL 40 MG TAB PO SCH (09:00)
[2017-05-18] MEDS ORDERED: ENOXAPARIN 40 MG/0.4 ML SYR SQ SCH (09:00)
[2017-05-18] MEDS ORDERED: FINASTERIDE 5 MG TAB PO SCH (09:00)
[2017-05-18] MEDS: CALCIUM 600MG + VIT D 400 IU TAB PO SCH (09:28)
[2017-05-18] MEDS: METOPROLOL TARTRATE 25 MG TAB PO SCH (09:30)
[2017-05-18 10:53] VITALS: BP 125/82; PULSE 70; TEMP 36.8; O2SAT 96
[2017-05-18] MEDS: OXYCODONE/ACETAMINOPHEN 5-325 TAB PO PRN (11:08)
== END 2017-05-18 12:00 | disposition home or self-care (01) ==
LOC: C.ACU 05:59 → C.MSW 10:16 → ENRESERV 10:42 → EDBEDREQ 10:58
PROVIDERS: ADMIT Surgery; ATTEND Surgery
DX: K40.90 Unilateral inguinal hernia, without obstruction or gangrene, not specified as recurrent (principal); D68.51 Activated protein C resistance; I25.10 Atherosclerotic heart disease of native coronary artery without angina pectoris; I10 Essential (primary) hypertension; E78.5 Hyperlipidemia, unspecified; G47.33 Obstructive sleep apnea (adult) (pediatric); I25.2 Old myocardial infarction; N40.0 Benign prostatic hyperplasia without lower urinary tract symptoms; M19.90 Unspecified osteoarthritis, unspecified site; E66.9 Obesity, unspecified; Z68.35 Body mass index [BMI] 35.0-35.9, adult; Z98.890 Other specified postprocedural states; Z86.711 Personal history of pulmonary embolism; Z86.718 Personal history of other venous thrombosis and embolism; Z79.01 Long term (current) use of anticoagulants; Z79.82 Long term (current) use of aspirin; Z79.899 Other long term (current) drug therapy; Z82.49 Family history of ischemic heart disease and other diseases of the circulatory system; Z80.9 Family history of malignant neoplasm, unspecified

== ENCOUNTER → 2017-06-01 | Outpatient (CLI) | payer OTHER ==
[~2017-06-01] MED LIST changes: -ACET-1256 PO; +OXYC-57 PO
[2017-06-01 10:02] LABS: BASO % 0.8 %; BASO ABS # 0.05 K/uL (0-0.2); EOS % 3.5 %; EOS ABS # 0.23 K/uL (0-0.5); HEMATOCRIT 34.6 % (42-52); HEMOGLOBIN 11.8 g/dL (14.0-18.0); IG# 0.01 K/uL (0.00-0.02); LYMPH % 19.8 %; LYMPH ABS # 1.31 K/uL (1.2-3.4); MEAN CELL VOLUME 89.2 fL (80-100); MEAN CORPUSCULAR HEMOGLOBIN 30.4 pg (25-34); MEAN CORPUSCULAR HGB CONC 34.1 g/dl (32-36); MEAN PLATELET VOLUME 9.2 fL (7.4-10.4); MONO % 9.8 %; MONO ABS # 0.65 K/uL (0.11-0.59); NEUT % 65.9 %; NEUT ABS # 4.35 K/uL (1.4-6.5); PLATELET COUNT 174 K/uL (130-400); RED CELL DISTRIBUTION WIDTH CV 14.1 % (11.5-14.5); RED CELL DISTRIBUTION WIDTH SD 46.2 fL (36.4-46.3)
[2017-06-01 10:28] LABS: BLOOD UREA NITROGEN 21 mg/dl (7-18); CALCIUM 8.6 mg/dl (8.5-10.1); CARBON DIOXIDE 27 mmol/L (21-32); CREATININE 1.09 mg/dl (0.60-1.40); GLUCOSE 99 mg/dl (70-99); POTASSIUM 4.4 mmol/L (3.5-5.1); SODIUM 138 mmol/L (136-145)
== END | disposition home or self-care (01) ==
LOC: C.LAB 09:14
PROVIDERS: ATTEND Internal Medicine Geriatric Medicine
DX: D69.6 Thrombocytopenia, unspecified (principal)

== ENCOUNTER → 2017-07-28 | Outpatient (CLI) | payer OTHER ==
[~2017-07-28] MED LIST changes: +WARF2.5T8 PO
--- NOTE | 2017-07-28 15:06 | DIAGNOSTIC IMAGING REPORT ---
R HAND MIN 3 VIEWS ROUTINE HISTORY: 72 years-old Male M19.90 [id number] Injury of hand, [id number] Pain acute pain and swelling of the right hand, most pronounced at the third MCP joint COMPARISON: None available TECHNIQUE: 4 views of the right hand FINDINGS: Peripheral vascular disease. Mild radiocarpal and triscaphe degenerative changes. No acute fracture or dislocation. Moderate joint space narrowing with marginal spurring and subcortical cystic changes of the third MCP joint. Mild associated soft tissue swelling. IMPRESSION: 1. No acute fracture or dislocation. 2. Degenerative changes about the hand and wrist as above with moderate joint space narrowing, subchondral cystic changes and marginal spurring about the third MCP joint with mild soft tissue swelling. 3. Peripheral vascular disease. The above report was generated using voice recognition software. It may contain grammatical, syntax or spelling errors. Electronically signed by: Ok Dinh M.D. 07/28/2017 3:04 PM Dictated Date/Time: 07/28/2017 3:02 PM
[2017-07-28 15:33] LABS: BASO % 0.7 %; BASO ABS # 0.05 K/uL (0-0.2); EOS % 2.4 %; EOS ABS # 0.17 K/uL (0-0.5); HEMATOCRIT 40.6 % (42-52); HEMOGLOBIN 13.8 g/dL (14.0-18.0); IG# 0.01 K/uL (0.00-0.02); LYMPH % 26.4 %; LYMPH ABS # 1.85 K/uL (1.2-3.4); MEAN CELL VOLUME 89.4 fL (80-100); MEAN CORPUSCULAR HEMOGLOBIN 30.4 pg (25-34); MEAN PLATELET VOLUME 10.3 fL (7.4-10.4); MONO ABS # 0.56 K/uL (0.11-0.59); NEUT % 62.4 %; NEUT ABS # 4.36 K/uL (1.4-6.5); PLATELET COUNT 145 K/uL (130-400); RED CELL DISTRIBUTION WIDTH CV 14.4 % (11.5-14.5); RED CELL DISTRIBUTION WIDTH SD 47.4 fL (36.4-46.3)
[2017-07-28 15:43] LABS: BLOOD UREA NITROGEN 25 mg/dl (7-18); CALCIUM 8.8 mg/dl (8.5-10.1); CARBON DIOXIDE 28 mmol/L (21-32); CREATININE 1.28 mg/dl (0.60-1.40); GLUCOSE 105 mg/dl (70-99); POTASSIUM 4.4 mmol/L (3.5-5.1); SODIUM 138 mmol/L (136-145); URIC ACID 7.7 mg/dl (2.6-7.2)
== END | disposition home or self-care (01) ==
LOC: C.RAD1850 14:23
PROVIDERS: ATTEND Nurse Practitioner Adult Health
DX: M19.90 Unspecified osteoarthritis, unspecified site (principal); M79.89 Other specified soft tissue disorders; S69.91XA Unspecified injury of right wrist, hand and finger(s), initial encounter; X58.XXXA Exposure to other specified factors, initial encounter; Z87.39 Personal history of other diseases of the musculoskeletal system and connective tissue

== ENCOUNTER → 2017-08-31 | Outpatient (CLI) | payer OTHER ==
[2017-08-31 11:26] LABS: BASO % 0.9 %; BASO ABS # 0.05 K/uL (0-0.2); EOS % 5.8 %; EOS ABS # 0.33 K/uL (0-0.5); HEMATOCRIT 38.8 % (42-52); HEMOGLOBIN 12.9 g/dL (14.0-18.0); LYMPH % 27.1 %; LYMPH ABS # 1.54 K/uL (1.2-3.4); MEAN CELL VOLUME 89.4 fL (80-100); MEAN CORPUSCULAR HEMOGLOBIN 29.7 pg (25-34); MEAN CORPUSCULAR HGB CONC 33.2 g/dl (32-36); MONO % 7.2 %; MONO ABS # 0.41 K/uL (0.11-0.59); NEUT ABS # 3.35 K/uL (1.4-6.5); PLATELET COUNT 127 K/uL (130-400); RED CELL DISTRIBUTION WIDTH CV 14.7 % (11.5-14.5); RED CELL DISTRIBUTION WIDTH SD 48.1 fL (36.4-46.3); WHITE BLOOD COUNT 5.68 K/uL (4.8-10.8)
[2017-08-31 12:21] LABS: ALBUMIN 3.4 gm/dl (3.4-5.0); ALT/SGPT 20 U/L (12-78); AST/SGOT 19 U/L (15-37); BLOOD UREA NITROGEN 21 mg/dl (7-18); CALCIUM 8.4 mg/dl (8.5-10.1); CARBON DIOXIDE 29 mmol/L (21-32); CHOLESTEROL 117 mg/dl (0-200); CREATININE 1.14 mg/dl (0.60-1.40); GLUCOSE 95 mg/dl (70-99); POTASSIUM 4.5 mmol/L (3.5-5.1); SODIUM 141 mmol/L (136-145)
[2017-08-31 12:24] LABS: ALKALINE PHOSPHATASE 82 U/L (45-117); LDL CHOLESTEROL CALCULATED 46 mg/dl; TOTAL PROTEIN 6.9 gm/dl (6.4-8.2)
== END | disposition home or self-care (01) ==
LOC: C.LAB 10:37
PROVIDERS: ATTEND Internal Medicine Geriatric Medicine
DX: I10 Essential (primary) hypertension (principal); F41.8 Other specified anxiety disorders; I25.10 Atherosclerotic heart disease of native coronary artery without angina pectoris; E78.5 Hyperlipidemia, unspecified; D64.9 Anemia, unspecified; M19.90 Unspecified osteoarthritis, unspecified site; Z79.01 Long term (current) use of anticoagulants; D69.6 Thrombocytopenia, unspecified

== ENCOUNTER 2025-03-19 14:30 | Observation (INO) ==
--- NOTE | 2025-03-19 14:51 | Emergency Department Note ---
Impression & Plan Bradycardia, Hematoma of left thigh, Traumatic ecchymosis of left thigh ED Provider Note NAME: SUSAN MENON Jr AGE: 79 SEX: M : 1945 ARRIVES VIA: Ambulance INFORMANT: Patient, EMS ED PROVIDER(S): Neal Lawler DO CHIEF COMPLAINT: Bradycardia HPI: The patient is a 79-year-old male who presented to the emergency department by ambulance for an evaluation of bradycardia. The patient does have some underlying dementia. His history is somewhat limited secondary to this condition. The patient went to see his family doctor today because of a fall. The patient fell injuring his left hip. He has a large hematoma there. He takes warfarin. There is no reported head injury or neck pain. The patient denies having any pain at this time. Reportedly he was sent to the emergency department because he had an EKG in the office that shows bradycardia. Because of the degree of bradycardia the patient was sent to the emergency department for further evaluation. ROS: See above HPI for pertinent positives & negatives. A total of 10 systems reviewed and were otherwise negative. PAST MEDICAL HISTORY: See Below PAST SURGICAL HISTORY: See Below FAMILY HISTORY: See Below SOCIAL HISTORY: See Below HOME MEDICATIONS: See Below ALLERGIES: See Below VITALS: See Below PHYSICAL EXAMINATION: GENERAL: Patient is awake alert in no acute distress patient is resting comfortably and showing no signs of anxiety EYES: The conjunctivae are clear. The pupils are round and reactive. EARS, NOSE, MOUTH AND THROAT: The nose is without any evidence of any deformity. Mucous membranes are moist. Tongue is midline. NECK: The neck is nontender and supple. RESPIRATORY: Normal respiratory effort is noted there is no evidence of wheezing rhonchi or rales CARDIOVASCULAR: Ectopic beats were noted to auscultation. There was a bradycardic rate noted. GASTROINTESTINAL: The abdomen is soft. Abdomen is nontender. BACK: No midline tenderness or or step-off noted range of motion in flexion extension as well as rotation no signs of muscle spasm noted MUSCULOSKELETAL/EXTREMITIES: There is no evidence of gross deformity full range of motion is noted in the hips and shoulders. There is a large amount of hematoma noted in the posterior left thigh. The pain does appear to originate at the left hip. There is no decreased range of motion of left hip or left knee. SKIN: Pedal edema was noted bilaterally. Skin was warm and dry. NEUROLOGIC: Patient is awake alert and oriented to person place but not time or situation. Strength was symmetric but diminished. There was no facial droop. MEDICAL DECISION MAKING: The patient is a 79-year-old male who presented to the emergency department for multiple complaints. The patient went to see his family doctor today because of the hematoma on his left thigh. He had a fall last week. The patient had free range of motion of the hip. There is no other injury noted. The patient had no abdominal pain. I discussed the patient's laboratory and radiographic studies with him. The patient was also sent to the emergency department because of bradycardia. The patient did not have symptomatic bradycardia but he did drop down into the 30s multiple times and he was having frequent PVCs. I discussed the patient's condition with the on-call [facility] hospitalist. They have agreed to evaluate the patient in the emergency department for further management and disposition. Triage Nursing notes reviewed. Prior medical records reviewed Vital Signs: reviewed and remarkable for intermittent episodes of bradycardia. Differential diagnosis: Infection, dehydration, metabolic abnormality, hypo/hyperglycemia, electrolyte disturbance, anemia, hypoxia, cardiac sources, intracerebral event, toxicologic, neurologic, as well as other pathologies. ER treatment provided: See below Diagnostics interpreted by me: ECG: EKG was obtained in the emergency department. My interpretation is sinus rhythm at 76 bpm. First-degree AV block is noted. Frequent PVCs were noted. Underlying rate does appear to be very bradycardic. Cardiac Monitoring: An order was placed for continuous cardiac monitoring. The monitor shows a rate of 66 bpm with sinus rhythm. Laboratory studies: As stated above and show below. Imaging studies: See below. Radiographic imaging was reviewed by myself Consultation(s): I discussed this case with Dr. Johnson who is on-call for the [facility] hospitalist group. Past Med/Surg History Problem List Traumatic ecchymosis of left thigh (Acute) Hematoma of left thigh (Acute) Bradycardia (Acute) BPH (benign prostatic hyperplasia) (Acute) Urinary urgency (Acute) Factor V Leiden mutation (Chronic 02/21/11) Diarrhea (Acute) S/P inguinal hernia repair Medical History Interrupted inferior vena cava Hyperplastic colon polyp Hyperthyroidism Inguinal hernia Pulmonary embolism Gout Gastrointestinal hemorrhage Diverticulitis Diverticulosis Bunion of left foot Myocardial infarction Surgical History History of arthroscopy of left knee H/O hernia repair Family History Mother Colorectal cancer Cardiac disorder Hypertension Father Cardiac disorder Hypertension Brother Cancer Social History Smoking Status: Former smoker Hx Alcohol Use: No Preferred Language: Hebrew marital status: current occupational status: retired Feels Safe at Home: Yes Allergies Allergies Allergy/AdvReac Type Severity Reaction Status Date / Time propoxyphene AdvReac Intermediate RASH Verified 06/02/24 09:37 celecoxib AdvReac Mild LIGHTHEADED Verified 06/02/24 09:37 NESS diphenhydramine AdvReac Mild LIGHTHEADED Verified 06/02/24 09:37 NESS doxycycline AdvReac Mild GI SYMPTOMS Verified 06/02/24 09:37 escitalopram AdvReac Unknown PT DOESN'T Verified 06/02/24 09:37 REMEMBER REACTION venlafaxine AdvReac Unknown PT DOESN'T Verified 06/02/24 09:37 REMEMBER REACTION Home Meds Home Medications Medication Instructions Recorded Confirmed aspirin 81 mg tablet,delayed 81 mg PO DAILY 11/25/23 06/02/24 release atorvastatin 40 mg tablet 40 mg PO DAILY 11/25/23 06/02/24 cholecalciferol (vitamin D3) 25 25 mcg PO DAILY 11/25/23 06/02/24 mcg (1,000 unit) capsule (Vitamin D3) cyanocobalamin (vitamin B-12) 1,000 mcg PO DAILY 11/25/23 06/02/24 1,000 mcg tablet (Vitamin B-12) fluticasone propionate 50 2 spray intranasal DAILY PRN Nasal 11/25/23 06/02/24 mcg/actuation nasal Congestion spray,suspension (Flonase Allergy Relief) loratadine 10 mg tablet 10 mg PO DAILY 11/25/23 06/02/24 metoprolol tartrate 25 mg tablet 25 mg PO BID 11/25/23 06/02/24 warfarin 2.5 mg tablet 1.25 - 2.5 mg PO DIRECTED 11/25/23 11/25/23 lisinopril 40 mg tablet mg PO 06/02/24 06/02/24 Previous Rx's Medication Instructions Recorded amoxicillin 875 mg-potassium 1 tab PO BID #14 tabs 06/02/24 clavulanate 125 mg tablet Results & Data (ED) Vital Signs Vital Signs - 24 hr 03/19/25 14:39 03/19/25 14:44 03/19/25 14:44 Temperature 36.6 C Temperature Source Oral Pulse Rate 75 75 75 Pulse Rate [Apical] Pulse Rhythm Regular Regular Pulse Rhythm [Apical] Pulse Strength Normal Pulse Strength [Apical] Respiratory Rate 18 18 Respiratory Effort / Characteristics Non-Labored Spontaneous Respiratory Depth Normal Respiratory Pattern Regular Blood Pressure 168/112 H Blood Pressure [Right Arm] Blood Pressure Mean 130 Blood Pressure Mean [Right Arm] Blood Pressure Position Lying Blood Pressure Position [Right Arm] Pulse Oximetry 95 95 Oxygen Delivery Method Room Air Room Air Sepsis Recent Fever Within 48 Hours No Sepsis New/Unexplained Change in Mental Status No Sepsis Action Taken by Nursing No Action Required 03/19/25 14:44 03/19/25 14:44 03/19/25 16:00 Temperature 36.6 C Temperature Source Oral Pulse Rate Pulse Rate [Apical] 75 66 Pulse Rhythm Pulse Rhythm [Apical] Regular Pulse Strength Pulse Strength [Apical] Normal Respiratory Rate 18 20 Respiratory Effort / Characteristics Non-Labored Spontaneous Respiratory Depth Normal Respiratory Pattern Regular Blood Pressure Blood Pressure [Right Arm] 168/112 H 148/85 H Blood Pressure Mean Blood Pressure Mean [Right Arm] 130 106 Blood Pressure Position Blood Pressure Position [Right Arm] Lying Pulse Oximetry 95 95 96 Oxygen Delivery Method Room Air Room Air Room Air Sepsis Recent Fever Within 48 Hours Sepsis New/Unexplained Change in Mental Status Sepsis Action Taken by Longterm Medications Current Medication List: was personally reviewed by me Laboratory Data Attestation: I reviewed the patient's lab results. 03/19/25 14:42 03/19/25 14:42 Lab Results 03/19/25 Range/Units 14:42 WBC 6.48 (4.8-10.8) K/ul RBC 3.84 L (4.70-6.10) M/uL Hgb 11.4 L (14.0-18.0) g/dL Hct 35.3 L (42.0-52.0) % MCV 91.9 (80.0-100.0) fL MCH 29.7 (25.0-34.0) pg MCHC 32.3 (32.0-36.0) g/dL RDW Std Deviation 51.5 H (36.4-46.3) fL RDW Coeff of Darren 15.5 H (11.5-14.5) % Plt Count 158 (130-400) K/uL MPV 9.9 (9.4-12.4) fL Immature Gran % (Auto) 0.3 % Neut % (Auto) 66.0 % Lymph % (Auto) 18.2 % Chambers % (Auto) 11.3 % Eos % (Auto) 3.4 % Baso % (Auto) 0.8 % Neut # (Auto) 4.28 (1.40-6.50) K/uL Lymph # (Auto) 1.18 L (1.20-3.40) K/uL Chambers # (Auto) 0.73 H (0.11-0.59) K/uL Eos # (Auto) 0.22 (0.00-0.50) K/uL Baso # (Auto) 0.05 (0.00-0.20) K/uL Immature Gran # (Auto) 0.02 (0.01-0.20) K/uL PT 19.8 H (9.0-12.0) Seconds INR 1.9 H (0.9-1.1) APTT 31 (21-31) Seconds PTT Ratio 1.1 Sodium 139 (136-145) mmol/L Potassium 4.6 (3.5-5.1) mmol/L Chloride 102 (98-107) mmol/L Carbon Dioxide 31 (21-32) mmol/L Anion Gap 6 (3-11) BUN 22 (6-23) mg/dl Creatinine 0.93 (0.6-1.4) mg/dl Est Cr Clr Drug Dosing Not Reportable eGFR 84.57 BUN/Creatinine Ratio 23.7 H (10-20) Glucose 109 H (70-99(Fasting)) mg/dl Calcium 8.6 (8.6-10.3) mg/dl Magnesium 2.1 (1.7-2.4) mg/dl Total Bilirubin 1.0 (0.2-1.0) mg/dl AST 17 (13-39) U/L ALT 10 (7-52) U/L Alkaline Phosphatase 90 (34-104) U/L Total Creatine Kinase 64 (30-223) U/L Troponin I High Sens 10.5 (0-20) pg/ml Total Protein 6.4 (6.0-8.3) gm/dl Albumin 3.7 (3.4-5.0) gm/dl Globulin 2.7 (2.5-4.0) gm/dl Albumin/Globulin Ratio 1.4 (0.9-2) TSH 1.708 (0.300-4.500) uIu/ml Imaging Data Attestation: I personally reviewed and interpreted this imaging study as follows: My Impression: 1 view chest x-ray was obtained in the emergency department. My interpretation is no free air or definite infiltrate, final report below. Radiologist's Impression: Cervical Spine CT 03/19/25 14:36 CT SCAN OF THE CERVICAL SPINE CLINICAL HISTORY: Fall. COMPARISON STUDY: Cervical spine CT November 25, 2023. TECHNIQUE: CT scan of the cervical spine is performed from the skull base to the upper thoracic spine. Images are reviewed in the axial, sagittal, and coronal planes. IV contrast was not administered for this examination. A dose lowering technique was utilized adhering to the principles of ALARA. FINDINGS: Evaluation of the mid to lower cervical spine is mildly compromised due to artifact. However, no acute fractures within the cervical spine are identified. Severe multilevel disc space, endplate osteophytosis and facet arthrosis is again noted. Degenerative changes at the C1-C2 articulation are similar to prior CT. Facet joints are intact. There is no prevertebral edema. Old bilateral clavicular and upper rib fractures are again noted. IMPRESSION: 1. No acute cervical spine fracture or subluxation. Exam mildly compromised by artifact. 2. Moderate to severe multilevel degenerative changes within the cervical spine. ACT 112: Negative or not required by law. Electronically signed by: Phong Daigle M.D. 03/19/2025 3:29 PM Chest X-Ray 03/19/25 14:36 XR chest 1V portable CLINICAL HISTORY: weakness COMPARISON STUDY: Chest CT February 14, 2011. Chest radiograph December 05, 2023. FINDINGS: Elevation of the right hemidiaphragm is unchanged. Blunting the right costophrenic angle is also unchanged. There is no pneumothorax or definite pleural effusion. Cardiomegaly is again noted. There is no evidence for pulmonary edema. There is no lobar consolidation. Old bilateral rib and left clavicular fractures are incidentally noted. Severe osteoarthritis of both glenohumeral joints. IMPRESSION: 1. No acute cardiopulmonary findings. 2. No significant change in elevation of the right hemidiaphragm. 3. Multiple old bilateral rib fractures. ACT 112: Negative or not required by law. Electronically signed by: Phong Daigle M.D. 03/19/2025 3:[address] 03/19/25 14:36 CT SCAN OF THE BRAIN WITHOUT IV CONTRAST CLINICAL HISTORY: Head trauma, unsteady gait. COMPARISON STUDY: 11/25/2023 TECHNIQUE: Unenhanced axial CT scan of the brain was performed from the vertex to the skull base. A dose lowering technique was utilized adhering to the principles of ALARA. CT DOSE: 1860.21 mGy.cm FINDINGS: No intra or extra-axial mass lesions are visualized. There is no CT evidence of acute cortical infarction. There is no midline shift. There is no acute hemorrhage. No orbital lesions are visualized. There are minor periventricular white matter hypodensities likely on a small vessel basis. No calvarial fractures are visualized. There is partial opacification of several ethmoid air cells. There is mild right maxillary sinus mucosal thickening. IMPRESSION: No acute intracranial findings. ACT 112: Negative or not required by law. Electronically signed by: Ulises Dubon M.D. 03/19/2025 3:21 PM Hip/Pelvis X-Ray 03/19/25 14:36 XR hip 1V LT w pelvis CLINICAL HISTORY: fall pain. COMPARISON: None FINDINGS: The bones appear osteopenic. There are moderately extensive vascular calcifications present. No acute fractures or subluxations are visualized. There are advanced degenerative changes present within the lumbar spine. IVC filter is visualized. IMPRESSION: 1. No acute fractures or dislocations. ACT 112: Negative or not required by law. Electronically signed by: Ulises Dubon M.D. 03/19/2025 3:30 PM Discharge Plan Visit Data Chief Complaint: Cardiac Assessment Stated Complaint: CARDIAC ASSESSMENT, HEMATOMA TO BUTTOCKS ED Provider: Neal Lawler Discharge Problem: Bradycardia, Hematoma of left thigh, Traumatic ecchymosis of left thigh Patient Disposition: Home - Self-Care Condition: Fair Forms Stand Alone Forms: [facility], Important Visit Information Prescriptions Prescriptions: No Action lisinopril 40 mg tablet PO amoxicillin-pot clavulanate 875-125 mg tablet 1 tab PO BID Qty: 14 0RF atorvastatin 40 mg tablet 40 mg PO DAILY cyanocobalamin (vitamin B-12) [Vitamin B-12] 1,000 mcg Tablet 1,000 mcg PO DAILY warfarin 2.5 mg tablet 1.25 - 2.5 mg PO DIRECTED Rx Instructions: As directed by anti- coagulation clinic aspirin [Aspir-Low] 81 mg Tablet,Delayed Release (Dr/Ec) 81 mg PO DAILY fluticasone propionate [Flonase Allergy Relief] 50 mcg/actuation Isabella,Suspension 2 spray INTRANASAL DAILY PRN (Reason: Nasal Congestion) Rx Instructions: administer into each nostril loratadine 10 mg Tablet 10 mg PO DAILY cholecalciferol (vitamin D3) [Vitamin D3] 25 mcg (1,000 unit) Capsule 25 mcg PO DAILY metoprolol tartrate 25 mg tablet 25 mg PO BID Referrals Referrals: Darnell Allen MD [Primary Care Provider] -
[2025-03-19 14:57] LABS: Hematocrit (blood only) 35.3 % (42.0-52.0); Hemoglobin 11.4 g/dL (14.0-18.0); Immature Granulocytes # (auto) 0.02 K/uL (0.01-0.20); Immature Granulocytes % (auto) 0.3 %; Mean Corpuscular Hemoglobin 29.7 pg (25.0-34.0); Mean Corpuscular Volume 91.9 fL (80.0-100.0); Platelet Count 158 K/uL (130-400); RDW Standard Deviation 51.5 fL (36.4-46.3); Red Blood Count 3.84 M/uL (4.70-6.10); White Blood Count 6.48 K/ul (4.8-10.8)
[2025-03-19 15:14] LABS: Alanine Aminotransferase 10 U/L (7-52); Albumin Globulin Ratio 1.4 (0.9-2); Albumin Level 3.7 gm/dl (3.4-5.0); Alkaline Phosphatase 90 U/L (34-104); Anion Gap 6 (3-11); Bilirubin,Total 1.0 mg/dl (0.2-1.0); Blood Urea Nitrogen 22 mg/dl (6-23); Calcium 8.6 mg/dl (8.6-10.3); Carbon Dioxide 31 mmol/L (21-32); Chloride 102 mmol/L (98-107); Creatine Kinase 64 U/L (30-223); Globulin 2.7 gm/dl (2.5-4.0); Glucose 109 mg/dl (70-99(Fasting)); Magnesium 2.1 mg/dl (1.7-2.4); Potassium 4.6 mmol/L (3.5-5.1); Sodium 139 mmol/L (136-145); Total Protein 6.4 gm/dl (6.0-8.3)
[2025-03-19 15:22] LABS: INR 1.9 (0.9-1.1); Partial Thromboplastin Time 31 Seconds (21-31); Prothrombin Time 19.8 Seconds (9.0-12.0)
--- NOTE | 2025-03-19 15:23 | CT Scan Report ---
CT SCAN OF THE BRAIN WITHOUT IV CONTRAST CLINICAL HISTORY: Head trauma, unsteady gait. COMPARISON STUDY: 11/25/2023 TECHNIQUE: Unenhanced axial CT scan of the brain was performed from the vertex to the skull base. A dose lowering technique was utilized adhering to the principles of ALARA. CT DOSE: 1860.21 mGy.cm FINDINGS: No intra or extra-axial mass lesions are visualized. There is no CT evidence of acute cortical infarction. There is no midline shift. There is no acute hemorrhage. No orbital lesions are visualized. There are minor periventricular white matter hypodensities likely on a small vessel basis. No calvarial fractures are visualized. There is partial opacification of several ethmoid air cells. There is mild right maxillary sinus muco esther thickening. IMPRESSION: No acute intracranial findings. ACT 112: Negative or not required by law. Electronically signed by: Ulises Dubon M.D. 03/19/2025 3:21 PM
[2025-03-19 15:29] LABS: Thyroid Stimulating Hormone 1.708 uIu/ml (0.300-4.500)
--- NOTE | 2025-03-19 15:31 | CT Scan Report ---
CT SCAN OF THE CERVICAL SPINE CLINICAL HISTORY: Fall. COMPARISON STUDY: Cervical spine CT November 25, 2023. TECHNIQUE: CT scan of the cervical spine is performed from the skull base to the upper thoracic spine . Images are reviewed in the axial, sagittal, and coronal planes. IV contrast was not administered fo r this examination. A dose lowering technique was utilized adhering to the principles of ALARA. FINDINGS: Evaluation of the mid to lower cervical spine is mildly compromised due to artifact. Howeve r, no acute fractures within the cervical spine are identified. Severe multilevel disc space, endplat e osteophytosis and facet arthrosis is again noted. Degenerative changes at the C1-C2 articulation ar e similar to prior CT. Facet joints are intact. There is no prevertebral edema. Old bilateral clavicu lar and upper rib fractures are again noted. IMPRESSION: 1. No acute cervical spine fracture or subluxation. Exam mildly compromised by artifact. 2. Moderate to severe multilevel degenerative changes within the cervical spine. ACT 112: Negative or not required by law. Electronically signed by: Phong Daigle M.D. 03/19/2025 3:29 PM
--- NOTE | 2025-03-19 15:32 | XRay Report ---
XR hip 1V LT w pelvis CLINICAL HISTORY: fall pain. COMPARISON: None FINDINGS: The bones appear osteopenic. There are moderately extensive vascular calcifications presen t. No acute fractures or subluxations are visualized. There are advanced degenerative changes present within the lumbar spine. IVC filter is visualized. IMPRESSION: 1. No acute fractures or dislocations. ACT 112: Negative or not required by law. Electronically signed by: Ulises Dubon M.D. 03/19/2025 3:30 PM
--- NOTE | 2025-03-19 15:36 | Electrocardiogram Report ---
Test Reason : Blood Pressure : */* mmHG Vent. Rate : 76 BPM Atrial Rate : 76 BPM P-R Int : 240 ms QRS Dur : 100 ms QT Int : 416 ms P-R-T Axes : * 48 29 degrees QTcB Int : 468 ms Sinus rhythm with 1st degree A-V block with frequent Premature ventricular complexes in a pattern of bigeminy Low voltage QRS Possible Inferior infarct (cited on or before 14-Sep-2019) Cannot rule out Anterior infarct , age undetermined Abnormal ECG When compared with ECG of 25-Nov-2023 15:19, Premature ventricular complexes are now Present Confirmed by Neal Bear ([id number]) on 03/19/2025 3:36:20 PM Referred By: Confirmed By: Neal Bear
--- NOTE | 2025-03-19 15:49 | XRay Report ---
XR chest 1V portable CLINICAL HISTORY: weakness COMPARISON STUDY: Chest CT February 14, 2011. Chest radiograph December 05, 2023. FINDINGS: Elevation of the right hemidiaphragm is unchanged. Blunting the right costophrenic angle is also unchanged. There is no pneumothorax or definite pleural effusion. Cardiomegaly is again noted. There is no evidence for pulmonary edema. There is no lobar consolidation. Old bilateral rib and left clavicular fractures are incidentally noted. Severe osteoarthritis of both glenohumeral joints. IMPRESSION: 1. No acute cardiopulmonary findings. 2. No significant change in elevation of the right hemidiaphragm. 3. Multiple old bilateral rib fractures. ACT 112: Negative or not required by law. Electronically signed by: Phong Daigle M.D. 03/19/2025 3:47 PM
[2025-03-19 17:13] LABS: Appearance Urine Clear (Clear); Bacteria Urine Automated None Seen (None Seen); Cast Urine Automated 0-2 /lpf (0-2); Epithelial Cell Urine Auto 0-2 /hpf (0-2); Glucose Urine UA Negative (Negative); RBC Urine Automated 0-2 /hpf (0-2); WBC Urine Automated 0-5 /hpf (0-5)
[2025-03-19] MEDS: Patient's HEIGHT &/or WEIGHT Needed STA (18:23)
--- NOTE | 2025-03-19 18:43 | History & Physical Report ---
Date of Service March 19, 2025 Assessment & Plan (1) Traumatic ecchymosis of left thigh: (2) BPH (benign prostatic hyperplasia): (3) DVT (deep venous thrombosis): (4) Factor V Leiden mutation: (5) Bradycardia: Plan Bradycardia in a 79 yo male with a history of a fall at home one week ago. Will admit to PCU. Will hold beta joan for now. May need to watch for rebound tachycardia, may consider starting low dose metoprolol succinate at 12.5mg if HR permits. If no improvement in HR, may need pacemaker. Will consult cardiology. Given dementia and risk of delirium and history of sundowning, will try to keep this admission short especially if patient's HR remains stable. Hematoma/ h/o DVT/ factor V leiden mutation Holding warfarin for now. Will need to monitor INR Dementia: will need one to one especially at bedtime. Admission and Anticipated Discharge Date Admission Date: March 19, 2025 History of Present Illness Chief Complaint: Low heart rate Primary Care Provider: Darnell Allen MD Patient with PMH of dementia, factor V leiden mutation, DVT, PE, BPH sleep apnea with concerns of sundowning in the afternoon. Patient is brought to the hospital from [facility] outpatient PCP due to findings of bradycardia. Patient was being seen at outpatien provider for followup of a fall he sustained last week where he developed a hematoma in his left thigh. Patient's HR though was in the 30s which prompted him to come to the hospital. ROS:Patient is a poor historian. His family is at bedside: they report his leg swelling has worsened over the past few days but this is a chronic issue, and he has been having SOB upon exertion Allergies Allergy/AdvReac Type Severity Reaction Status Date / Time propoxyphene AdvReac Intermediate RASH Verified 06/02/24 09:37 celecoxib AdvReac Mild LIGHTHEADED Verified 06/02/24 09:37 NESS diphenhydramine AdvReac Mild LIGHTHEADED Verified 06/02/24 09:37 NESS doxycycline AdvReac Mild GI SYMPTOMS Verified 06/02/24 09:37 escitalopram AdvReac Unknown PT DOESN'T Verified 06/02/24 09:37 REMEMBER REACTION venlafaxine AdvReac Unknown PT DOESN'T Verified 06/02/24 09:37 REMEMBER REACTION Home Medications Medication Instructions Recorded Confirmed Type aspirin 81 mg tablet,delayed 81 mg PO DAILY 11/25/23 06/02/24 History release atorvastatin 40 mg tablet 40 mg PO DAILY 11/25/23 06/02/24 History cholecalciferol (vitamin D3) 25 25 mcg PO DAILY 11/25/23 06/02/24 History mcg (1,000 unit) capsule (Vitamin D3) cyanocobalamin (vitamin B-12) 1,000 mcg PO DAILY 11/25/23 06/02/24 History 1,000 mcg tablet (Vitamin B-12) fluticasone propionate 50 2 spray intranasal DAILY PRN Nasal 11/25/23 06/02/24 History mcg/actuation nasal Congestion spray,suspension (Flonase Allergy Relief) loratadine 10 mg tablet 10 mg PO DAILY 11/25/23 06/02/24 History metoprolol tartrate 25 mg tablet 25 mg PO BID 11/25/23 06/02/24 History warfarin 2.5 mg tablet 1.25 - 2.5 mg PO DIRECTED 11/25/23 11/25/23 History amoxicillin 875 mg-potassium 1 tab PO BID #14 tabs 06/02/24 06/02/24 Rx clavulanate 125 mg tablet lisinopril 40 mg tablet mg PO 06/02/24 06/02/24 History Past Med/Surg History Problem List Traumatic ecchymosis of left thigh (Acute) Hematoma of left thigh (Acute) Bradycardia (Acute) BPH (benign prostatic hyperplasia) (Acute) Urinary urgency (Acute) Factor V Leiden mutation (Chronic 02/21/11) Diarrhea (Acute) S/P inguinal hernia repair Medical History Interrupted inferior vena cava Hyperplastic colon polyp Hyperthyroidism Inguinal hernia Pulmonary embolism Gout Gastrointestinal hemorrhage Diverticulitis Diverticulosis Bunion of left foot Myocardial infarction Surgical History History of arthroscopy of left knee H/O hernia repair Family History Mother Colorectal cancer Cardiac disorder Hypertension Father Cardiac disorder Hypertension Brother Cancer Social History Smoking Status: Former smoker Hx Alcohol Use: No Hx Substance Use: No Preferred Language: Mongolian Communication Ability: Effective 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 Beliefs That Will Affect Care: None marital status: Current Living Situation: Spouse current occupational status: retired Feels Safe at Home: Yes Safety Concerns: Feels Safe At This Time Assistive Devices: Cane Review of Systems Review of Systems: Unobtainable due to cognitive status Physical Exam 2 Constitutional: WD/WN, vitals as above Neck: trachea midline, no thyromegaly Respiratory: normal respiratory effort, lungs clear to auscultation Cardiovascular: RRR, no murmur, no edema Gastrointestinal (Abdomen): normal bowel sounds, soft, nontender, no hepatosplenomegaly Musculoskeletal: hematoma bruise noted on left thigh Skin: no rashes, warm and dry Neurologic: PERRL, EOMI, accommodation nl, no face palsy, no dysarthria Psychiatric: Orientation: alert, oriented to person and cooperative Results & Data Results & Data Vital Signs (Past 12 Hours) Vital Signs Temp Pulse Pulse Resp BP BP Pulse Ox 03/19/25 17:28 36.5 C 84 18 163/84 H 97 03/19/25 17:00 66 20 152/84 H 94 03/19/25 17:00 66 20 94 03/19/25 16:00 66 20 148/85 H 96 03/19/25 14:44 36.6 C 75 18 168/112 H 95 03/19/25 14:44 95 03/19/25 14:44 75 18 95 03/19/25 14:44 36.6 C 75 18 168/112 H 95 03/19/25 14:39 75 O2 Del Method 03/19/25 17:28 Room Air 03/19/25 17:00 Room Air 03/19/25 17:00 03/19/25 16:00 Room Air 03/19/25 14:44 Room Air 03/19/25 14:44 Room Air 03/19/25 14:44 Room Air 03/19/25 14:44 Room Air 03/19/25 14:39 PG Care Time/CCT Total # of Minutes Spent Total Time Spent with Patient: Total time spent is greater than 50% in coordination of care (as documented) at patient's floor/unit and/or counseling patient: Coding Level of Care Code 19813 INT INP/OBS CARE 3/75MIN Diagnoses Traumatic ecchymosis of left thigh S70.12XA BPH (benign prostatic hyperplasia) N40.0 DVT (deep venous thrombosis) I82.409 Factor V Leiden mutation D68.51 Bradycardia R00.1
[2025-03-19] MEDS: FUROSEMIDE INJ 20 MG/2 ML VIAL IV ONE (19:37)
[2025-03-20 06:19] LABS: Hematocrit (blood only) 34.4 % (42.0-52.0); Hemoglobin 11.5 g/dL (14.0-18.0); Mean Corpuscular Hemoglobin 30.1 pg (25.0-34.0); Mean Corpuscular Volume 90.1 fL (80.0-100.0); Platelet Count 137 K/uL (130-400); RDW Standard Deviation 48.6 fL (36.4-46.3); Red Blood Count 3.82 M/uL (4.70-6.10); White Blood Count 7.12 K/ul (4.8-10.8)
[2025-03-20 06:40] LABS: Anion Gap 8.0 (3-11); Blood Urea Nitrogen 25.0 mg/dl (6-23); Calcium 8.6 mg/dl (8.6-10.3); Carbon Dioxide 29.0 mmol/L (21-32); Chloride 101.0 mmol/L (98-107); Creatinine Clr Calc Pharmacy 66.6 ml/min; Glucose 98.0 mg/dl (70-99(Fasting)); Potassium 4.0 mmol/L (3.5-5.1); Sodium 138.0 mmol/L (136-145)
[2025-03-20] MEDS: ASPIRIN 81 MG ECTAB PO SCH (08:35)
[2025-03-20] MEDS: ATORVASTATIN 40 MG TAB PO SCH (08:35)
[2025-03-20] MEDS: CHOLECALCIFEROL 25 MCG (1000 UNITS) TAB PO SCH (08:35)
[2025-03-20] MEDS: ACETAMINOPHEN 325 MG TAB PO PRN (08:47)
--- NOTE | 2025-03-20 09:12 | XCELERA ---
[id number] [id number]
--- NOTE | 2025-03-20 10:02 | Cardiology Consultation ---
Date of Consultation March 20, 2025 Assessment & Plan (1) Bradycardia: -He demonstrated an episode of asymptomatic, sinus bradycardia while eating breakfast. -Suspect bradycardia noted and PCP visit was secondary to PVCs in bigeminy. -No history of syncope or presyncope. -Agree with holding metoprolol to tartrate for now. -Continue to observe on telemetry. (2) PVC (premature ventricular contraction): -Likely cause of a miss read bradycardia. -Continue to observe on telemetry. (3) Hypertension: -Adequate control on current regimen. (4) Hypercholesterolemia: -Continue atorvastatin. History of Present Illness Attending Physician: Casimiro Bird MD History of Present Illness Mr. Ospina is a 79-year-old male admitted yesterday after a mechanical fall and with a resting bradycardia. This consultation was ordered to assist in his cardiac management. The patient was in his usual state of health until approximately 1 week prior to presentation. He had a mechanical fall and suffered a left thigh hematoma. Yesterday, he was being evaluated by his PCP. He demonstrated a bradycardic heart rate, and therefore, was sent to the emergency room for further care. On arrival here, the patient's initial EKG noted normal sinus rhythm and PVCs in a pattern of bigeminy. The patient has not experienced any recent syncope, presyncope, or dizziness. He has never known of a cardiac event. He has never had a stress test or cardiac catheterization according to his report. Currently, patient is resting comfortably in bed without complaints. Past medical and surgical history 1. Hypertension 2. Hypercholesterolemia 3. Factor V Leiden mutation 4. History of DVT/PE 5. Dementia 6. BPH 7. Gout 8. Obstructive sleep apnea 9. Diverticulitis 10. Colonic polyps 11. Inguinal hernia repair Social history , lives with his No tobacco or alcohol Family history Noncontributory Review of systems A 10 point review of system was undertaken and negative except that described above. Allergies Allergy/AdvReac Type Severity Reaction Status Date / Time propoxyphene AdvReac Intermediate RASH Verified 06/02/24 09:37 celecoxib AdvReac Mild LIGHTHEADED Verified 06/02/24 09:37 NESS diphenhydramine AdvReac Mild LIGHTHEADED Verified 06/02/24 09:37 NESS doxycycline AdvReac Mild GI SYMPTOMS Verified 06/02/24 09:37 escitalopram AdvReac Unknown PT DOESN'T Verified 06/02/24 09:37 REMEMBER REACTION venlafaxine AdvReac Unknown PT DOESN'T Verified 06/02/24 09:37 REMEMBER REACTION Home Medications Medication Instructions Recorded Confirmed Type aspirin 81 mg tablet,delayed 81 mg PO DAILY 11/25/23 06/02/24 History release atorvastatin 40 mg tablet 40 mg PO DAILY 11/25/23 06/02/24 History cholecalciferol (vitamin D3) 25 25 mcg PO DAILY 11/25/23 06/02/24 History mcg (1,000 unit) capsule (Vitamin D3) cyanocobalamin (vitamin B-12) 1,000 mcg PO DAILY 11/25/23 06/02/24 History 1,000 mcg tablet (Vitamin B-12) fluticasone propionate 50 2 spray intranasal DAILY PRN Nasal 11/25/23 06/02/24 History mcg/actuation nasal Congestion spray,suspension (Flonase Allergy Relief) loratadine 10 mg tablet 10 mg PO DAILY 11/25/23 06/02/24 History metoprolol tartrate 25 mg tablet 25 mg PO BID 11/25/23 06/02/24 History warfarin 2.5 mg tablet 1.25 - 2.5 mg PO DIRECTED 11/25/23 11/25/23 History amoxicillin 875 mg-potassium 1 tab PO BID #14 tabs 06/02/24 06/02/24 Rx clavulanate 125 mg tablet lisinopril 40 mg tablet mg PO 06/02/24 06/02/24 History Patient History Medical History Interrupted inferior vena cava Hyperplastic colon polyp Hyperthyroidism Inguinal hernia Pulmonary embolism Gout Gastrointestinal hemorrhage Diverticulitis Diverticulosis Bunion of left foot Myocardial infarction Surgical History History of arthroscopy of left knee H/O hernia repair Family History Mother Colorectal cancer Cardiac disorder Hypertension Father Cardiac disorder Hypertension Brother Cancer Social History Smoking Status: Former smoker Hx Alcohol Use: No Hx Substance Use: No Preferred Language: Yemeni Communication Ability: Effective 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 HEENT exam is negative. Neck reveals normal carotid upstrokes without bruits. Jugular venous pressure is flat at 90. There is no thyromegaly. Cardiovascular exam reveals a regular rhythm with distant heart sounds. No obvious murmurs. Lungs are clear without rales, rhonchi, or wheezes. Abdomen is soft without bruits. Extremities reveal intact radial artery pulses bilaterally. There is trace pretibial edema. Results & Data Vital Signs (Past 12 Hours) Vital Signs Temp Pulse Pulse Resp BP Pulse Ox O2 Del Method 03/20/25 09:42 80 03/20/25 07:09 36.6 C 65 19 146/64 H 94 Room Air 03/20/25 02:16 36.7 C 68 16 138/59 L 92 Room Air 03/19/25 22:43 36.9 C 67 16 132/64 94 Room Air 03/19/25 21:54 75 Laboratory Results CBC notes hemoglobin of 11.5, hematocrit 34.4, white count 7.1, and platelet count 137,000. Electrolytes are unremarkable. BNP is mildly elevated at 317. High-sensitivity troponin is normal at 10.5. TSH level is normal at 1.71. Diagnostic Findings Echocardiogram notes normal left ventricular systolic function with ejection fraction 55 to 60%. There is borderline LVH. EKG notes sinus rhythm and PVCs in a pattern of bigeminy. There is poor R wave progression across the anterior precordium, and inferior MT pattern cannot be excluded. Chest x-ray notes cardiomegaly and an elevated right hemidiaphragm. PG Care Time/CCT Total # of Minutes Spent Total Time Spent with Patient: Total time spent is greater than 50% in coordination of care (as documented) at patient's floor/unit and/or counseling patient: Coding Level of Care Code 18891 INT INP/OBS CARE 3/75MIN Diagnoses Bradycardia R00.1 PVC (premature ventricular contraction) I49.3 Hypertension I10 Hypercholesterolemia E78.00
--- NOTE | 2025-03-20 12:42 | Hospitalist Progress Note ---
Date of Service March 20, 2025 Assessment & Plan (1) Bradycardia: (2) Acute encephalopathy: (3) Dementia: (4) Acute heart failure with preserved ejection fraction (HFpEF): (5) Traumatic ecchymosis of left thigh: (6) BPH (benign prostatic hyperplasia): (7) DVT (deep venous thrombosis): (8) Factor V Leiden mutation: (9) History of pulmonary embolus (PE): Plan 79yo male with h/o dementia, factor V leiden mutation, prior DVT/PE on coumadin, BPH, FRANCIS, HTN. About 1 week ago had a fall at home in the bathroom. Suffered a left thigh hematoma from that fall. He was seen by his PCP on day of admission and found to have low HR in the 30s. He was referred to the ER for evaluation. #bradycardia - -resolved -appreciate cardiology consultation -echo wnl -TSH wnl -cardiology feels that the bradycardia may have been due to PVCs in a bigeminy pattern -metoprolol has been placed on hold and HRs/BPs remain stable (gets a little tachy when agitated only) -cont telemetry #probable acute HFpEF - -per pt's family he had worsening LE edema along with dyspnea -s/p IV lasix yesterday with copious UOP -still with mild LE edema - will give lasix 20mg po x 1 today -re-eval tomorrow for ongoing diuretics #dementia with behavioral disturbance / severe acute encephalopathy - -pt's family alerted us that he is on depakote 250mg daily at home for control of agitation, etc. -will resume -today he had an episode of severe agitation requiring calling of security and emergency use of IM zyprexa -at bedtime will make zyprexa available to him on prn basis -reinforce sleep/wake cycles -avoid sedatives/benzos/etc. -no evidence of any infectious process that would have caused increasing confusion/agitation -reagan in place thus no urinary retention -had BM earlier today thus no impaction #h/o DVT/PE on coumadin - -INR noted to be slightly <2 -cont coumadin at home dosing -daily INR #BPH - -he is not on meds for such -catheter was placed for urinary retention but I cannot find the amount for which it was placed -leave reagan for now, but would pull it as soon as possible #HTN - -cont lisinopril -metoprolol is on hold at this time #recent fall at home about 1 week prior to admission - -large amount of resolving ecchymoses left leg, but imaging w/o any specific injury/fracture/etc. pt's daughter updated via [employer] correspondence Admission and Anticipated Discharge Date Admission Date: March 19, 2025 Subjective patient unable to provide any meaningful history during the visit he was resting in bed - was calm & followed commands - but was talking nonsensibly tele overnight - NSR, no AV block, no pauses (brief episode of "bradycardia" - likely due to PVCs in bigeminy pattern) ate all of breakfast denied pain in any location by report he required IM zyprexa early this am about 0500 despite such he has not slept in over 24 hours about 4pm/430 patient became very agitated, grabbing the arm of a nursing staff member security was called and IM zyprexa given again he was placed in soft limb restraints due to concern for safety of staff members and to maintain the patency of IVs, prevent inadvertent removal of his reagan, etc. about 45 min after the IM zyprexa he became more calm and was not as agitated Review of Systems 2 Review of Systems: Unobtainable due to cognitive status Physical Exam Physical Exam: gen - obese, NAD, confused neck - no obvious JVD mouth - MMM heart - regular rate, irregular (PVCs), s1 s2, no murmur lungs - slight crackle b/l bases, otherwise CTA b/l abd - soft NT ND BS+ ext - <1+ edema b/l legs, pulses 2+ b/l feet psych - oriented to person only skin - left lateral thigh - resolving ecchymoses proximal thigh Results & Data Results & Data Vital Signs (Past 12 Hours) Vital Signs Temp Pulse Pulse Resp BP Pulse Ox O2 Del Method 03/20/25 10:46 36.7 C 68 19 125/70 93 Room Air 03/20/25 09:42 80 03/20/25 07:09 36.6 C 65 19 146/64 H 94 Room Air 03/20/25 02:16 36.7 C 68 16 138/59 L 92 Room Air Laboratory Results Laboratory Results - last 48 hr 03/20/25 03/20/25 05:46 12:59 WBC 7.12 RBC 3.82 L Hgb 11.5 L Hct 34.4 L MCV 90.1 MCH 30.1 MCHC 33.4 RDW Std Deviation 48.6 H RDW Coeff of Darren 14.8 H Plt Count 137 MPV 9.9 PT 18.0 H INR 1.8 H Sodium 138 Potassium 4.0 Chloride 101 Carbon Dioxide 29 Anion Gap 8 BUN 25 H Creatinine 1.12 Est Cr Clr Drug Dosing 66.6 eGFR 67.66 BUN/Creatinine Ratio 22.3 H Glucose 98 Calcium 8.6 Iron TIBC Transferrin Transferrin % Sat Ferritin B-Natriuretic Peptide 317 H Vitamin B12 Folate PG Care Time/CCT Total # of Minutes Spent Total Time Spent with Patient: Total time spent is greater than 50% in coordination of care (as documented) at patient's floor/unit and/or counseling patient: Coding Level of Care Code 11879 SUB INP/OBS CARE 3/50MIN Diagnoses Bradycardia R00.1 Acute encephalopathy G93.40 Dementia G30.9; F02.80 Alzheimer's disease onset: unspecified onset Dementia behavioral or psychological symptom: unspecified whether be havioral, psychotic, or mood disturbance or anxiety Dementia severity: unspecified severity Dementia type: Alzheimer's Acute heart failure with preserved ejection fraction (HFpEF) I50.31 Traumatic ecchymosis of left thigh S70.12XA BPH (benign prostatic hyperplasia) N40.0 DVT (deep venous thrombosis) I82.409 Factor V Leiden mutation D68.51 History of pulmonary embolus (PE) Z86.711 (3) Dementia Alzheimer's disease onset: unspecified onset Dementia behavioral or psy chological symptom: unspecified whether behavioral, psychotic, or mood disturbance or anxiety Dementia severity: unspecified severity Dementia type: Alzheimer's Qualified Code(s): G30.9 - Alzheimer's disease, unspecified; F02.80 - Dementia in other diseases classified elsewhere, unspecified severity, without behavioral disturbance, psychotic disturbance, mood disturbance, and anxiety
[2025-03-20] MEDS: FUROSEMIDE 20 MG TAB PO ONE (12:55)
[2025-03-20 13:48] LABS: INR 1.8 (0.9-1.1); Prothrombin Time 18.0 Seconds (9.0-12.0)
[2025-03-20] MEDS: DIVALPROEX DELAY RELEASE 250 MG TABEC PO ONE (15:17)
[2025-03-20] MEDS: MELATONIN 3 MG TAB PO PRN (19:32)
[2025-03-20] MEDS: WARFARIN SOD 2.5 MG TAB PO SCH (19:32)
[2025-03-20] MEDS: DIVALPROEX EXTENDED RELEASE 250 MG TABCR PO SCH (23:32)
[2025-03-21 07:24] LABS: Anion Gap 8.0 (3-11); Calcium 8.8 mg/dl (8.6-10.3); Carbon Dioxide 31.0 mmol/L (21-32); Chloride 102.0 mmol/L (98-107); Potassium 4.2 mmol/L (3.5-5.1); Sodium 141.0 mmol/L (136-145)
[2025-03-21 07:29] LABS: Blood Urea Nitrogen 22.0 mg/dl (6-23); Creatinine Clr Calc Pharmacy 72.2 ml/min; Glucose 114.0 mg/dl (70-99(Fasting)); Iron 40.0 mcg/dl (35-175); Total Iron Binding Cap Calc 302.0 mcg/dl (250-450); Transferrin 216.0 mg/dl (200-360); Transferrin (FE) Percent Satur 13.0 % (20-50)
[2025-03-21 07:46] LABS: Folate (Folic Acid),Ser orPlas 17.65 ng/ml (>5.38)
[2025-03-21 07:47] LABS: INR 1.7 (0.9-1.1); Prothrombin Time 17.9 Seconds (9.0-12.0); Vitamin B12 758.0 pg/ml (180-914)
[2025-03-21 07:57] LABS: Ferritin 186.6 ng/ml (8-388)
[2025-03-21] MEDS: LIDOCAINE 5% 1 PATCH TD STA (13:21)
[2025-03-21] MEDS: DIVALPROEX DELAY RELEASE 250 MG TABEC PO ONE (13:21)
--- NOTE | 2025-03-21 14:28 | CT Scan Report ---
CT lumbar spine wo con CLINICAL HISTORY: Recent fall, lumbar back pain. COMPARISON STUDY: Lumbar spine radiographs November 17, 2016. CT of the abdomen and pelvis January 31, 2017. TECHNIQUE: Axial images of the lumbar spine were obtained without IV contrast. Sagittal and coronal r eformats were viewed. A dose lowering technique was utilized adhering to the principles of ALARA. FINDINGS: For purposes of numbering on this exam, the L5-S1 disc space is assigned to axial image 289 of 362. This exam is mildly compromised by artifact. Mild lumbar spine levoscoliosis is noted. No ac robinson lumbar spine fractures are present. There are no suspicious osseous lesions. Mild anterolisthesis of L4 on L5 is unchanged since CT of January 31, 2017. This is due to severe facet arthrosis. There is severe multilevel facet arthrosis within lumbar spine. Mild concavity of the T12 endplates as well as the superior plate of L1 is unchanged. Central canal and neural foramen are suboptimally assessed given CT technique. IVC filter is incidentally noted. Sacroiliac joints are intact. Paravertebral so ft tissues are unremarkable by CT. Several old left-sided transverse process deformities are present. IMPRESSION: 1. No acute lumbar spine fracture or subluxation. Exam mildly compromised by artifact. 2. Severe multilevel facet arthrosis and moderate degenerative disc disease within the lumbar spine. 3. Mild lumbar spine levoscoliosis. ACT 112: Negative or not required by law. Electronically signed by: Phong Daigle M.D. 03/21/2025 2:27 PM
--- NOTE | 2025-03-21 14:30 | CT Scan Report ---
CT pelvis wo con CLINICAL HISTORY: recent fall, pelvic pain COMPARISON STUDY: CT scan dated 01/31/2017 FINDINGS: Helical images were acquired in transverse plane. Sagittal and coronal reformatted images were acquir ed. An IVC filter is visualized. There is no evidence of SI joint diastases. Anterior angulation segment remains unchanged from 2017 i s therefore felt to be old. There are extensive vascular calcifications present. There is a fat-containing left inguinal hernia. No acute fractures are visualized. Degenerative changes are present in the spine. There is lower lumbar spinal stenosis. IMPRESSION: 1. No acute fractures identified. ACT 112: Negative or not required by law. Electronically signed by: Ulises Dubon M.D. 03/21/2025 2:29 PM
[2025-03-21] MEDS ORDERED: HYDROCODONE/ACETAMOPHEN 5/325MG TAB PO PRN (15:26)
[2025-03-21] MEDS: DIVALPROEX DELAY RELEASE 250 MG TABEC PO SCH (20:31)
--- NOTE | 2025-03-21 20:57 | Hospitalist Progress Note ---
Date of Service March 21, 2025 Assessment & Plan (1) Bradycardia: (2) Acute encephalopathy: (3) Dementia: (4) Acute heart failure with preserved ejection fraction (HFpEF): (5) Traumatic ecchymosis of left thigh: (6) BPH (benign prostatic hyperplasia): (7) DVT (deep venous thrombosis): (8) Factor V Leiden mutation: (9) History of pulmonary embolus (PE): (10) Low back pain: Plan 79yo male with h/o dementia, factor V leiden mutation, prior DVT/PE on coumadin, BPH, FRANCIS, HTN. About 1 week ago had a fall at home in the bathroom. Suffered a left thigh hematoma from that fall. He was seen by his PCP on day of admission and found to have low HR in the 30s. He was referred to the ER for evaluation. #bradycardia - -resolved and has not recurred -appreciate cardiology consultation -echo wnl -TSH wnl -cardiology feels that the bradycardia may have been due to PVCs in a bigeminy pattern -metoprolol has been placed on hold and HRs/BPs remain stable (gets a little tachy when agitated only) -will d/w cardiology if we can resume metoprolol perhaps at lower dose, or use coreg in [place] -cont telemetry #probable acute HFpEF - -s/p lasix IV x 1 and lasix PO x 1 since admission and today appears euvolemic #low back pain - -acute on chronic -lumbar CT and pelvic CT without fractures -severe DJD noted on lumbar CT -lidoderm patches -tylenol prn mild pain -norco prn mod/severe pain -consider baclofen if muscle relaxation is needed (cautiously) #dementia with behavioral disturbance / severe acute encephalopathy - -pt's family alerted us that he is on depakote 250mg daily at home for control of agitation, etc. -I reviewed pharmacy records - should be taking such BID; thus, increase depakote to 250mg BID -less agitation today, and restraints discontinued this AM -did not need any zyprexa today -perhaps pain in back is contributing to agitation in addition to hospital delirium/psychosis, etc. -treat pain -reinforce sleep/wake cycles -avoid sedatives/benzos/etc. -no evidence of any infectious process that would have caused increasing confusion/agitation -schedule melatonin at HS -would d/c merary as this may be creating agitation for him #h/o DVT/PE on coumadin - -INR noted - 1.7 -cont coumadin at home dosing -daily INR -if INR is still <2 will give extra coumadin tomorrow #BPH - -he is not on meds for such -catheter was placed for urinary retention but I cannot find the amount for which it was placed -leave reagan for now, but would pull it later today or first thing tomorrow am #HTN - -cont lisinopril -metoprolol is on hold at this time' resume at lower dose or use coreg in [place]? #recent fall at home about 1 week prior to admission - -large amount of resolving ecchymoses left leg, but imaging w/o any specific injury/fracture/etc. including CT lumbar spine & CT pelvis today #DVT Proph - -coumadin cont PT/OT PT today advised rehab post-d/c family updated at bedside today extensively Admission and Anticipated Discharge Date Admission Date: March 19, 2025 Subjective overnight tele was stable Mr Ospina - although more calm than yesterday afternoon - amazingly did not sleep and was up all night confused he did not require any additional IM zyprexa fortunately nursing staff removed his soft limb restraints this am and since then he has had no agitation or aggressive behaviors warranting placing them back on during my visit his and daughter were present we had lengthy discussion about his agitated delirium we discussed causes, keys to controlling it, why antipsychotics are used and the limitations to these medicines, etc. family mentioned that he has been complaining of his low back throughout the day today he has intermittently complained about his back since his fall in the bathroom at home a little over a week ago he does have chronic low back pain at baseline as well per staff he ate well earlier today late in the afternoon I got a message from nursing that patient was out to the chair and did do some limited walking in the room Review of Systems Review of Systems: Unobtainable due to cognitive status Physical Exam Physical Exam: gen - obese, NAD, confused, sleepy, unable to have any discussion neck - no obvious JVD mouth - MMM heart - regular rate, irregular (PVCs), s1 s2, no murmur lungs - CTA b/l abd - soft NT ND BS+ ext - no edema b/l legs, pulses 2+ b/l feet psych - oriented to person only; very sleepy; confused skin - left lateral thigh - resolving ecchymoses proximal thigh musculo - passive ROM of both hips including log-rolling without any pain; moves both legs equally; nontender over c-spine elements Results & Data Results & Data Vital Signs (Past 12 Hours) Vital Signs Temp Pulse Resp BP Pulse Ox O2 Del Method 03/21/25 20:33 36.6 C 70 18 131/63 92 Room Air Laboratory Results Laboratory Results - last 24 hr 03/21/25 06:48 PT 17.9 H INR 1.7 H Sodium 141 Potassium 4.2 Chloride 102 Carbon Dioxide 31 Anion Gap 8 BUN 22 Creatinine 1.04 Est Cr Clr Drug Dosing 72.2 eGFR 73.95 BUN/Creatinine Ratio 21.2 H Glucose 114 H Calcium 8.8 Iron 40 TIBC 302 Transferrin 216 Transferrin % Sat 13 L Ferritin 186.6 Vitamin B12 758 Folate 17.65 Diagnostic Findings Lumbar Spine CT 03/21/25 13:04 CT lumbar spine wo con CLINICAL HISTORY: Recent fall, lumbar back pain. COMPARISON STUDY: Lumbar spine radiographs November 17, 2016. CT of the abdomen and pelvis January 31, 2017. TECHNIQUE: Axial images of the lumbar spine were obtained without IV contrast. Sagittal and coronal reformats were viewed. A dose lowering technique was utilized adhering to the principles of ALARA. FINDINGS: For purposes of numbering on this exam, the L5-S1 disc space is assigned to axial image 289 of 362. This exam is mildly compromised by artifact. Mild lumbar spine levoscoliosis is noted. No acute lumbar spine fractures are present. There are no suspicious osseous lesions. Mild anterolisthesis of L4 on L5 is unchanged since CT of January 31, 2017. This is due to severe facet arthrosis. There is severe multilevel facet arthrosis within lumbar spine. Mild concavity of the T12 endplates as well as the superior plate of L1 is unchanged. Central canal and neural foramen are suboptimally assessed given CT technique. IVC filter is incidentally noted. Sacroiliac joints are intact. Paravertebral soft tissues are unremarkable by CT. Several old left-sided transverse process deformities are present. IMPRESSION: 1. No acute lumbar spine fracture or subluxation. Exam mildly compromised by artifact. 2. Severe multilevel facet arthrosis and moderate degenerative disc disease within the lumbar spine. 3. Mild lumbar spine levoscoliosis. ACT 112: Negative or not required by law. Electronically signed by: Phong Daigle M.D. 03/21/2025 2:[address] 03/21/25 13:04 CT pelvis wo con CLINICAL HISTORY: recent fall, pelvic pain COMPARISON STUDY: CT scan dated 01/31/2017 FINDINGS: Helical images were acquired in transverse plane. Sagittal and coronal reformatted images were acquired. An IVC filter is visualized. There is no evidence of SI joint diastases. Anterior angulation segment remains unchanged from 2017 is therefore felt to be old. There are extensive vascular calcifications present. There is a fat-containing left inguinal hernia. No acute fractures are visualized. Degenerative changes are present in the spine. There is lower lumbar spinal stenosis. IMPRESSION: 1. No acute fractures identified. ACT 112: Negative or not required by law. Electronically signed by: Ulises Dubon M.D. 03/21/2025 2:29 PM PG Care Time/CCT Total # of Minutes Spent Total Time Spent with Patient: Total time spent is greater than 50% in coordination of care (as documented) at patient's floor/unit and/or counseling patient: Coding Level of Care Code 56314 SUB INP/OBS CARE 3/50MIN Diagnoses Bradycardia R00.1 Acute encephalopathy G93.40 Dementia G30.9; F02.80 Alzheimer's disease onset: unspecified onset Dementia behavioral or psychological symptom: unspecified whether behavioral, psychotic, or mood disturbance or anxiety Dementia severity: unspecified severity Dementia type: Alzheimer's Acute heart failure with preserved ejection fraction (HFpEF) I50.31 Traumatic ecchymosis of left thigh S70.12XA BPH (benign prostatic hyperplasia) N40.0 DVT (deep venous thrombosis) I82.409 Factor V Leiden mutation D68.51 History of pulmonary embolus (PE) Z86.711 Low back pain M54.50 (3) Dementia Alzheimer's disease onset: unspecified onset Dementia behavioral or psychological symptom: unspecified whether behavioral, psychotic, or mood disturbance or anxiety Dementia severity: unspecified severity Dementia type: Alzheimer's Qualified Code(s): G30.9 - Alzheimer's disease, unspecified; F02.80 - Dementia in other diseases classified elsewhere, unspecified severity, without behavioral disturbance, psychotic disturbance, mood disturbance, and anxiety
[2025-03-21] MEDS: MELATONIN 3 MG TAB PO SCH (21:50)
[2025-03-22] MEDS: REMOVE LIDODERM PATCH ONE (02:34)
[2025-03-22 06:59] LABS: Anion Gap 7.0 (3-11); Blood Urea Nitrogen 23.0 mg/dl (6-23); Calcium 8.4 mg/dl (8.6-10.3); Carbon Dioxide 31.0 mmol/L (21-32); Chloride 101.0 mmol/L (98-107); Creatinine Clr Calc Pharmacy 65.8 ml/min; Glucose 106.0 mg/dl (70-99(Fasting)); Potassium 4.2 mmol/L (3.5-5.1); Sodium 139.0 mmol/L (136-145)
[2025-03-22 07:05] LABS: INR 2.0 (0.9-1.1); Prothrombin Time 20.8 Seconds (9.0-12.0)
--- NOTE | 2025-03-22 13:27 | Hospitalist Progress Note ---
Date of Service March 22, 2025 Assessment & Plan (1) Bradycardia: (2) Acute encephalopathy: (3) Dementia: (4) Acute heart failure with preserved ejection fraction (HFpEF): (5) Traumatic ecchymosis of left thigh: (6) BPH (benign prostatic hyperplasia): (7) DVT (deep venous thrombosis): (8) Factor V Leiden mutation: (9) History of pulmonary embolus (PE): (10) Low back pain: Plan 79yo male with h/o dementia, factor V leiden mutation, prior DVT/PE on coumadin, BPH, FRANCIS, HTN. About 1 week ago had a fall at home in the bathroom. Suffered a left thigh hematoma from that fall. He was seen by his PCP on day of admission and found to have low HR in the 30s. He was referred to the ER for evaluation. #bradycardia - -resolved and has not recurred -appreciate cardiology consultation -echo wnl -TSH wnl -cardiology feels that the bradycardia may have been due to PVCs in a bigeminy pattern -metoprolol has been placed on hold and HRs/BPs remain stable (gets a little tachy when agitated only) -cont telemetry -BPs are low-normal thus hold off on rechallenging with any beta joan #probable acute HFpEF - -s/p lasix IV x 1 and lasix PO x 1 since admission with improved volume status -has some edema in legs today, lungs clear; will give a final dose of lasix 20mg po x 1 then stop diuretics #low back pain - -acute on chronic -lumbar CT and pelvic CT without fractures -severe DJD noted on lumbar CT -lidoderm patches -tylenol prn mild pain -norco prn mod/severe pain -did not complain of pain today #dementia with behavioral disturbance / severe acute encephalopathy - improved - -pt's family alerted us that he is on depakote 250mg daily at home for control of agitation, etc. -I reviewed pharmacy records - should be taking such BID; thus, increased depakote to 250mg BID -no agitation today, and no restraints needed in over 24 hours -did not need any zyprexa today either -reinforce sleep/wake cycles -avoid sedatives/benzos/etc. -no evidence of any infectious process that would have caused increasing confusion/agitation -schedule melatonin at HS -would d/c merary as this may be creating agitation for him -consider changing depakote 250 BID to once daily at HS to help promote better sleep #h/o DVT/PE on coumadin - -INR 2 today -cont coumadin at home dosing -daily INR #BPH - -he is not on meds for such -has reagan but we don't need it - d/c reagan and watch for any retention #HTN - -place lisinopril on hold - BPs are normal or low-normal at this point -cont to hold metoprolol #recent fall at home about 1 week prior to admission - -large amount of resolving ecchymoses left leg, but imaging w/o any specific injury/fracture/etc. including CT lumbar spine & CT pelvis #DVT Proph - -coumadin cont PT/OT dispo - rehab referrals made by social work family updated at bedside today extensively once again Admission and Anticipated Discharge Date Admission Date: March 19, 2025 Subjective apparently did not sleep overnight, but was calm & not agitated apparently was looking at magazines, watching TV, etc this am he finally fells asleep in the chair for about 3 hours eating well good BM today no agitation family at bedside during the visit they report constant sleeping at home - day & night tele without bradycardia he has not complained of back pain today Review of Systems Review of Systems: Unobtainable due to cognitive status Physical Exam Physical Exam: gen - sitting in chair; calm, cooperative, follows commands, no agitation; obese, NAD, baseline confusion neck - no obvious JVD mouth - MMM heart - regular rate, irregular (PVCs), s1 s2, no murmur lungs - CTA b/l abd - soft NT ND BS+ ext - trace edema b/l legs, pulses 2+ b/l feet psych - oriented to person only; awake, smiling Results & Data Results & Data Vital Signs (Past 12 Hours) Vital Signs Temp Pulse Pulse Resp BP BP Pulse Ox 03/22/25 11:46 36.4 C L 90 18 137/73 90 03/22/25 07:09 36.7 C 70 16 103/59 L 93 03/22/25 07:00 75 03/22/25 02:48 36.6 C 80 18 132/79 96 O2 Del Method 03/22/25 11:46 Room Air 03/22/25 07:09 Room Air 03/22/25 07:00 03/22/25 02:48 Room Air Laboratory Results Laboratory Results 03/22/25 05:44 PT 20.8 H INR 2.0 H Sodium 139 Potassium 4.2 Chloride 101 Carbon Dioxide 31 Anion Gap 7 BUN 23 Creatinine 1.14 Est Cr Clr Drug Dosing 65.8 eGFR 66.24 BUN/Creatinine Ratio 20.2 H Glucose 106 H Calcium 8.4 L PG Care Time/CCT Total # of Minutes Spent Total Time Spent with Patient: Total time spent is greater than 50% in coordination of care (as documented) at patient's floor/unit and/or counseling patient: Coding Level of Care Code 13721 SUB INP/OBS CARE 2/35MIN Diagnoses Bradycardia R00.1 Acute encephalopathy G93.40 Dementia G30.9; F02.80 Alzheimer's disease onset: unspecified onset Dementia behavioral or psychological symptom: unspecified whether behavioral, psychotic, or mood disturbance or anxiety Dementia severity: unspecified severity Dementia type: Alzheimer's Acute heart failure with preserved ejection fraction (HFpEF) I50.31 Traumatic ecchymosis of left thigh S70.12XA BPH (benign prostatic hyperplasia) N40.0 DVT (deep venous thrombosis) I82.409 Factor V Leiden mutation D68.51 History of pulmonary embolus (PE) Z86.711 Low back pain M54.50 (3) Dementia Alzheimer's disease onset: unspecified onset Dementia behavioral or psychological symptom: unspecified whether behavioral, psychotic, or mood disturbance or anxiety Dementia severity: unspecified severity Dementia type: Alzheimer's Qualified Code(s): G30.9 - Alzheimer's disease, unspecified; F02.80 - Dementia in other diseases classified elsewhere, unspecified severity, without behavioral disturbance, psychotic disturbance, mood disturbance, and anxiety
[2025-03-22] MEDS: FUROSEMIDE 20 MG TAB PO ONE (14:32)
[2025-03-22] MEDS: ACETAMINOPHEN 325 MG TAB PO PRN (14:32)
[2025-03-23 11:12] LABS: Anion Gap 5.0 (3-11); Blood Urea Nitrogen 37.0 mg/dl (6-23); Calcium 8.2 mg/dl (8.6-10.3); Carbon Dioxide 32.0 mmol/L (21-32); Chloride 100.0 mmol/L (98-107); Creatinine Clr Calc Pharmacy 62.1 ml/min; Glucose 127.0 mg/dl (70-99(Fasting)); Potassium 4.0 mmol/L (3.5-5.1); Sodium 137.0 mmol/L (136-145)
[2025-03-23 11:21] LABS: INR 2.3 (0.9-1.1); Prothrombin Time 23.4 Seconds (9.0-12.0)
--- NOTE | 2025-03-23 15:40 | Hospitalist Progress Note ---
Date of Service March 23, 2025 Assessment & Plan (1) Bradycardia: (2) Acute encephalopathy: (3) Dementia: (4) Acute heart failure with preserved ejection fraction (HFpEF): (5) Traumatic ecchymosis of left thigh: (6) BPH (benign prostatic hyperplasia): (7) DVT (deep venous thrombosis): (8) Factor V Leiden mutation: (9) History of pulmonary embolus (PE): (10) Low back pain: Plan 79yo male with h/o dementia, factor V leiden mutation, prior DVT/PE on coumadin, BPH, FRANCIS, HTN. About 1 week ago had a fall at home in the bathroom. Suffered a left thigh hematoma from that fall. He was seen by his PCP on day of admission and found to have low HR in the 30s. He was referred to the ER for evaluation. #bradycardia - -resolved and has not recurred -appreciate cardiology consultation -echo wnl -TSH wnl -cardiology feels that the bradycardia may have been due to PVCs in a bigeminy pattern -metoprolol has been placed on hold and HRs/BPs remain stable/controlled -BPs are low-normal thus hold off on rechallenging with any beta joan #probable acute HFpEF - resolved - -s/p lasix IV x 1 and lasix PO x 2 doses since admission with normalized volume status #low back pain - -acute on chronic - improved -lumbar CT and pelvic CT without fractures -severe DJD noted on lumbar CT -lidoderm patches -tylenol prn mild pain -norco prn mod/severe pain -again did not complain of pain today #dementia with behavioral disturbance / severe acute encephalopathy - improved - -pt's family alerted us that he is on depakote 250mg daily at home for control of agitation, etc. -I reviewed pharmacy records - should be taking such BID; thus, increased depakote to 250mg BID -again no agitation today, and no restraints needed in over 48 hours -did not need any zyprexa -reinforce sleep/wake cycles -avoid sedatives/benzos/etc. -no evidence of any infectious process that would have caused increasing confusion/agitation -schedule melatonin at HS -changing depakote DR 250 BID to once daily depakote extended-release 500mg at HS to help promote better sleep #h/o DVT/PE on coumadin - -INR 2.3 today -cont coumadin at home dosing -daily INR #BPH - -he is not on meds for such -reagan is d/c and voiding w/o LUTS by report #HTN - -cont to hold lisinopril -cont to hold metoprolol #recent fall at home about 1 week prior to admission - -large amount of resolving ecchymoses left leg, but imaging w/o any specific injury/fracture/etc. including CT lumbar spine & CT pelvis #DVT Proph - -coumadin cont PT/OT dispo - rehab referrals made by social work family updated at bedside today family asking if perhaps he can return home? will ask PT to re-eval tomorrow Admission and Anticipated Discharge Date Admission Date: March 19, 2025 Subjective lying in bed comfortably daughter & grand-daughter at bedside they both agree that he is more like himself today during the visit - although pleasantly confused - seemed to be asking when he could leave did sleep a little better overnight - about 3 hours by report no agitation no need for prn zyprexa no back pain or other areas of obvious pain Review of Systems Review of Systems: Unobtainable due to cognitive status Physical Exam Physical Exam: gen - laying in bed; calm, cooperative, follows commands, no agitation; obese, NAD, pleasant confusion neck - no obvious JVD mouth - MMM heart - regular rate, irregular (PVCs), s1 s2, no murmur lungs - CTA b/l abd - soft NT ND BS+ ext - no edema b/l legs, pulses 2+ b/l feet psych - oriented to person only; awake, smiling, laughing Results & Data Results & Data Vital Signs (Past 12 Hours) Vital Signs Temp Pulse Pulse Resp BP BP Pulse Ox 03/23/25 14:55 73 03/23/25 14:54 36.3 C L 76 20 147/74 H 94 03/23/25 11:48 36.2 C L 74 19 118/72 95 03/23/25 07:43 36.9 C 68 18 100/58 L 93 03/23/25 07:42 74 O2 Del Method 03/23/25 14:55 03/23/25 14:54 Room Air 03/23/25 11:48 Room Air 03/23/25 07:43 Room Air 03/23/25 07:42 Laboratory Results Laboratory Results - last 24 hr 03/23/25 10:35 PT 23.4 H INR 2.3 H Sodium 137 Potassium 4.0 Chloride 100 Carbon Dioxide 32 Anion Gap 5 BUN 37 H Creatinine 1.20 Est Cr Clr Drug Dosing 62.1 eGFR 62.29 BUN/Creatinine Ratio 30.8 H Glucose 127 H Calcium 8.2 L PG Care Time/CCT Total # of Minutes Spent Total Time Spent with Patient: Total time spent is greater than 50% in coordination of care (as documented) at patient's floor/unit and/or counseling patient: Coding Level of Care Code 03023 SUB INP/OBS CARE MIN Diagnoses Bradycardia R00.1 Acute encephalopathy G93.40 Dementia G30.9; F02.80 Alzheimer's disease onset: unspecified onset Dementia behavioral or psychological symptom: unspecified whether behavioral, psychotic, or mood disturbance or anxiety Dementia severity: unspecified severity Dementia type: Alzheimer's Acute heart failure with preserved ejection fraction (HFpEF) I50.31 Traumatic ecchymosis of left thigh S70.12XA BPH (benign prostatic hyperplasia) N40.0 DVT (deep venous thrombosis) I82.409 Factor V Leiden mutation D68.51 History of pulmonary embolus (PE) Z86.711 Low back pain M54.50 (3) Dementia Alzheimer's disease onset: unspecified onset Dementia behavioral or psychological symptom: unspecified whether behavioral, psychotic, or mood disturbance or anxiety Dementia severity: unspecified severity Dementia type: Alzheimer's Qualified Code(s): G30.9 - Alzheimer's disease, unspecified; F02.80 - Dementia in other diseases classified elsewhere, unspecified severity, without behavioral disturbance, psychotic disturbance, mood disturbance, and anxiety
[2025-03-23] MEDS: MELATONIN 3 MG TAB PO SCH (20:35)
[2025-03-23] MEDS: DIVALPROEX EXTENDED RELEASE 500 MG TAB PO SCH (20:38)
[2025-03-23] MEDS: NYSTATIN POWDER 15GM BTL EXT SCH (20:38)
[2025-03-24 06:16] LABS: Anion Gap 7.0 (3-11); Blood Urea Nitrogen 40.0 mg/dl (6-23); Calcium 8.5 mg/dl (8.6-10.3); Carbon Dioxide 30.0 mmol/L (21-32); Chloride 102.0 mmol/L (98-107); Creatinine Clr Calc Pharmacy 64.3 ml/min; Glucose 105.0 mg/dl (70-99(Fasting)); Potassium 4.1 mmol/L (3.5-5.1); Sodium 139.0 mmol/L (136-145)
[2025-03-24 06:26] LABS: INR 2.4 (0.9-1.1); Prothrombin Time 23.8 Seconds (9.0-12.0)
--- NOTE | 2025-03-24 13:09 | Hospitalist Progress Note ---
Date of Service March 24, 2025 Assessment & Plan (1) Bradycardia: (2) Acute encephalopathy: (3) Dementia: (4) Acute heart failure with preserved ejection fraction (HFpEF): (5) Traumatic ecchymosis of left thigh: (6) BPH (benign prostatic hyperplasia): (7) DVT (deep venous thrombosis): (8) Factor V Leiden mutation: (9) History of pulmonary embolus (PE): (10) Low back pain: Plan 79yo male with h/o dementia, factor V leiden mutation, prior DVT/PE on coumadin, BPH, FRANCIS, HTN. About 1 week ago had a fall at home in the bathroom. Suffered a left thigh hematoma from that fall. He was seen by his PCP on day of admission and found to have low HR in the 30s. He was referred to the ER for evaluation. #bradycardia - -resolved and has not recurred -tele has been wnl except for PVCs -appreciate cardiology consultation -echo wnl -TSH wnl -cardiology feels that the bradycardia may have been due to PVCs in a bigeminy pattern -metoprolol has been placed on hold and HRs/BPs remain stable/controlled -BPs are low-normal thus hold off on rechallenging with any beta joan #probable acute HFpEF - resolved - -s/p lasix IV x 1 and lasix PO x 2 doses since admission with normalized volume status -would use lasix at home ONLY PRN --- not standing #low back pain - -acute on chronic - improved / resolved pain -walking in room w/o discomfort or difficulty -lumbar CT and pelvic CT without fractures -severe DJD noted on lumbar CT -lidoderm patches -tylenol prn mild pain -norco prn mod/severe pain #dementia with behavioral disturbance / severe acute encephalopathy - improved - -pt's family alerted us that he is on depakote 250mg daily at home for control of agitation, etc. -I reviewed pharmacy records - should be taking such BID; thus, increased dep akote to 250mg BID -again no agitation today, and no restraints needed in over 72 hours -did not need any zyprexa overnight either -reinforce sleep/wake cycles -avoid sedatives/benzos/etc. -no evidence of any infectious process that would have caused increasing confusion/agitation -schedule melatonin at HS -changed depakote DR 250 BID to once daily depakote extended-release 500mg at HS last night and did well with such #h/o DVT/PE on coumadin - -INR 2.4 today -cont coumadin at home dosing -daily INR #BPH - -he is not on meds for such -reagan is d/c and voiding w/o LUTS by report #HTN - -cont to hold lisinopril -cont to hold metoprolol -BPs stable w/o such #recent fall at home about 1 week prior to admission - -large amount of resolving ecchymoses left leg, but imaging w/o any specific injury/fracture/etc. including CT lumbar spine & CT pelvis #DVT Proph - -coumadin cont PT/OT dispo - initially was rehab , but today did well with PT and PT feels he can return home with family -walker advised family updated at bedside today will discuss with social work tomorrow the prospect of returning home with home health services Admission and Anticipated Discharge Date Admission Date: March 19, 2025 Subjective no events no significant night-time agitation; did not need any zyprexa took depakote ER last pm and this am is not sleepy/drowsy eating well voiding andrei had another good BM during the visit today he asked "can I go home?" this was the best his speech has been all week /daughters at bedside Review of Systems Review of Systems: no back pain no abd pain no chest pain no dyspnea noted Physical Exam Physical Exam: gen - laying in bed; calm, cooperative, no agitation; obese, NAD, pleasant c onfusion; speech much more coherent vs other visits neck - no obvious JVD mouth - MMM heart - regular rate, irregular (PVCs), s1 s2, no murmur lungs - CTA b/l abd - soft NT ND BS+ ext - no edema b/l legs, pulses 2+ b/l feet psych - oriented to person only Results & Data Results & Data Vital Signs (Past 12 Hours) Vital Signs Pulse Pulse Resp BP Pulse Ox O2 Del Method 03/24/25 10:46 79 20 136/69 92 Room Air 03/24/25 07:15 70 03/24/25 03:20 65 18 133/80 92 Room Air Laboratory Results Laboratory Results - last 48 hr 03/23/25 03/24/25 10:35 05:26 PT 23.4 H 23.8 H INR 2.3 H 2.4 H Sodium 137 139 Potassium 4.0 4.1 Chloride 100 102 Carbon Dioxide 32 30 Anion Gap 5 7 BUN 37 H 40 H Creatinine 1.20 1.16 Est Cr Clr Drug Dosing 62.1 64.3 eGFR 62.29 64.87 BUN/Creatinine Ratio 30.8 H 34.5 H Glucose 127 H 105 H Calcium 8.2 L 8.5 L PG Care Time/CCT Total # of Minutes Spent Total Time Spent with Patient: Total time spent is greater than 50% in coordination of care (as documented) at patient's floor/unit and/or counseling patient: Coding Level of Care Code 41319 SUB INP/OBS CARE 2/35MIN Diagnoses Bradycardia R00.1 Acute encephalopathy G93.40 Dementia G30.9; F02.80 Alzheimer's disease onset: unspecified onset Dementia behavioral or psychological symptom: unspecified whether behavioral, psychotic, or mood disturbance or anxiety Dementia severity: unspecified severity Dementia type: Alzheimer's Acute heart failure with preserved ejection fraction (HFpEF) I50.31 Traumatic ecchymosis of left thigh S70.12XA BPH (benign prostatic hyperplasia) N40.0 DVT (deep venous thrombosis) I82.409 Factor V Leiden mutation D68.51 History of pulmonary embolus (PE) Z86.711 Low back pain M54.50 (3) Dementia Alzheimer's disease onset: unspecified onset Dementia behavioral or psychological symptom: unspecified whether behavioral, psychotic, or mood disturbance or anxiety Dementia severity: unspecified severity Dementia type: Alzheimer's Qualified Code(s): G30.9 - Alzheimer's disease, unspecified; F02.80 - Dementia in other diseases classified elsewhere, unspecified severity, without behavioral disturbance, psychotic disturbance, mood disturbance, and anxiety
[2025-03-25 07:23] LABS: INR 2.8 (0.9-1.1); Prothrombin Time 27.8 Seconds (9.0-12.0)
[2025-03-25 08:27] VITALS: RESP 19
[2025-03-25 11:58] VITALS: PULSE 69; TEMP 97.9; O2SAT 97
[2025-03-25 14:09] VITALS: BP 109/62
--- NOTE | 2025-03-25 14:10 | Discharge Summary ---
Discharge Summary Date of Service date of admission - March 19, 2025 date of discharge - March 25, 2025 Principal Dx & Hospital Course #1 = Principal Diagnosis (1) Bradycardia: (2) Acute encephalopathy: (3) Dementia: (4) Acute heart failure with preserved ejection fraction (HFpEF): (5) Traumatic ecchymosis of left thigh: (6) BPH (benign prostatic hyperplasia): (7) DVT (deep venous thrombosis): (8) Factor V Leiden mutation: (9) History of pulmonary embolus (PE): (10) Low back pain: (11) Jeanie rash of groin: Plan 79yo male with h/o dementia, factor V leiden mutation, prior DVT/PE on coumadin, BPH, FRANCIS, HTN. About 1 week prior to admission had a fall at home in the bathroom. Suffered a left thigh hematoma from that fall. He was seen by his PCP on day of admission and found to have low HR in the 30s. He was referred to the ER for evaluation. #bradycardia - -for most of the hospitalization his telemetry was largely normal except for frequent PVCs -he was seen by cardiology early in the hospitalization -cardiology initially felt that the bradycardia may have been due to PVCs in a bigeminy pattern -however, on the evening prior to discharge home, he had brief runs of 2nd degree AV block, Mobitz 1 -fortunately he had no symptoms from such -no pauses or higher block were seen -Echo was wnl -TSH was wnl -metoprolol was stopped and HRs/BPs remain stable/controlled with the except of the brief runs of 2nd degree AV block the night prior to discharge -given the Mobitz 1 2nd degree AV block seen we are recommending a 30-day monitor for home use to ensure he is not having pauses or higher block #probable acute HFpEF - resolved - -s/p lasix IV x 1 and lasix PO x 2 doses while here with normalized volume status #acute low back pain - likely 2nd to recent fall - -acute on chronic - pain resolved prior to discharge home -he was able to walk w/o discomfort or difficulty -lumbar CT and pelvic CT without fractures -severe DJD noted on lumbar CT -can use tylenol prn at home for pain relief #dementia with behavioral disturbance / severe acute encephalopathy - improved/resolved - -on the first night of pt's hospitalization he developed severe sundowning/confusion -he required zyprexa prn, and did need restraints as he was physically agg ressive on one occasion -pt's family alerted us that he was on depakote DR 250mg daily at home for control of agitation, etc. -reviewed pharmacy records - should be taking such BID; thus, increased depakote to 250mg BID -confusion/sundowning/agitation gradually dissipated, restraints were discontinued, and no further zyprexa was needed -he had no evidence of any infectious process that would have caused increasing confusion/agitation -he had no urinary retention or fecal impaction -ultimately changed his depakote DR 250 BID to once daily depakote extended- release 500mg at HS; he tolerated this minor change -suspect that his agitation/confusion was due to hospital delirium -by time of discharge the patient's neuropsychiatric status was at baseline and his family felt comfortable with him returning home with his spouse #h/o DVT/PE on coumadin - -INR 2.8 on day of discharge -cont coumadin at home dosing -cont INR checks in the outpatient setting according to his coumadin provider #BPH - -he is not on meds for such -did have a reagan while he was being diuresed -reagan was removed and he was voiding w/o LUTS prior to discharge home #HTN - -both his lisinopril and metoprolol were held the entire stay -on day of discharge his lisinopril was resumed albeit at a lower dose of 10mg/day (previously was on 40mg/day) -again metoprolol was STOPPED due to the 2nd degree AV block/Mobitz 1 being discovered #recent fall at home about 1 week prior to admission - -large amount of resolving ecchymoses left leg, but imaging w/o any specific injury/fracture/etc. including CT lumbar spine & CT pelvis #candidal rash of groin - -nystatin powder TID x 7 days received PT/OT services while here -initially rehab was advised, but he gradually got stronger, and later in the stay PT felt he could return home with family -PT did recommend use of a walker at his house -he will return home with his with home health services in place Notes For Next Care Provider 30-day event monitor recommended to rule out high degree AV block/pauses advise valproic acid level within 1 week of discharge Medication Changes From Visit 1. STOP metoprolol 2. LOWER lisinopril from 40mg daily ---> 10mg daily 3. d/c depakote DR 250mg BID 4. CHANGE to depakote extended-release 500mg HS Admission HPI Per Admitting Provider Patient with PMH of dementia, factor V leiden mutation, DVT, PE, BPH sleep apnea with concerns of sundowning in the afternoon. Patient is brought to the hospital from [facility] outpatient PCP due to findings of bradycardia. [facility] of a fall he sustained last week where he developed a hematoma in his left thigh. Patient's HR though was in the 30s which prompted him to come to the hospital. ROS:Patient is a poor historian. His family is at bedside: they report his leg swelling has worsened over the past few days but this is a chronic issue, and he has been having SOB upon exertion Discharge Exam gen - laying in bed; calm, cooperative, no agitation; obese, NAD, pleasant confusion; speech coherent, smiling neck - no obvious JVD mouth - MMM heart - regular rate, irregular (PVCs), s1 s2, no murmur lungs - CTA b/l abd - soft NT ND BS+ ext - no edema b/l legs, pulses 2+ b/l feet psych - oriented to person only skin - resolving ecchymoses of left lateral thigh Discharge Plan Discharge Items Patient Disposition: Home - Home Health Services Reason For Visit: BRADYCARDIA Discharge Diagnosis: 1. bradycardia - slow heart rate - resolved 2. AV block - outpatient heart monitoring recommended 3. severe delirium - resolved 4. history of DVT on coumadin (warfarin); discharge INR 2.8 5. resolving hematoma of left thigh due to a fall 6. 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 high blood pressure 8. dementia 9. yeast rash of groin Activity: Resume your previous activity Non-emergency contact: Primary Care Provider Call non-emergency contact if: you have any medication questions and your symptoms worsen Follow-up/Referrals: Darnell Allen MD [Primary Care Provider] - (Date & Time 04/01/2025 3:00 PM Provider: Rosalina Jean PA-C General Internal Medicine [facility]) Diet: Heart Healthy Addtl Attending Provider Instructions: Mr Ospina, You were hospitalized due to bradycardia (slow heart rate). This quickly resolved after stopping your metoprolol medicine. You remained stable on the heart monitor for the rest of your hospital stay. We did see a few episodes of something called "AV block." There are various types of AV block but the type we saw is not harmful. We specifically saw type 1 second degree AV block. After speaking with cardiology we are recommending that you wear a heart monitor at home to ensure you do not have other more serious forms of heart block. The more serious forms often lead to pacemaker placement. Again the type that we identified while you were here is not harmful nor does it typically cause symptoms. During your stay you had severe delirium (see handout on delirium & dementia). People with memory trouble/dementia are very prone to delirium in the hospital. The delirium improved over time. We did change your valproate DR 250mg twice daily to valproate ER 500mg once nightly at bedtime. You did well on this new formulation. Recommendations: 1. LOWER your lisinopril to 10mg once daily (you previously took 40mg once daily). New prescription sent to the [facility] for you. 2. STOP your metoprolol. 3. STOP valproate DR 250mg twice daily. 4. START valproate (divalproex) ER 500mg once daily at bedtime. New prescription sent to [facility]. 5. To help promote better sleep you may want to take irtw-hcy-gobeaot melatonin 5mg at bedtime each night. You received this here and did well on it. 6. Use a walker when you walk around the house or outside. 7. For yeast rash in groin may use nystatin powder three times daily for about 1 week. 8. Coumadin - -today, 03/25/25 - take HALF TABLET (1.25mg) at your usual time -tomorrow and thereafter resume your usual dosing schedule 9. Please have your family doctor check your valproic acid level in 5-7 days. 10. Wear the heart monitor at home as directed. Follow-up - see separate section Return to [facility] if - -you have fever over 100 degrees -you have more falls or difficulty walking -you have worsening shortness of breath or chest pain -you develop severe diarrhea (3 or more liquid stools in 24 hours) -you have dizziness or lightheadedness -any other concerns It was our pleasure to care for you! -Casimiro Bird Pending Studies at Discharge: Yes (vitamin B1 (thiamine) level ) Stand-Alone Forms: My [facility], Smoking Cessation Medications and DC Order Prescriptions: New nystatin [Nystop] 100,000 unit/gram Powder 1 applic EXT TID Qty: 30 0RF Rx Instructions: apply to rash in groin area three times daily x 7 days then stop. divalproex 500 mg Tablet Extended Release 24 Hr 500 mg PO HS Qty: 30 1RF Continued atorvastatin 40 mg tablet 40 mg PO DAILY cyanocobalamin (vitamin B-12) [Vitamin B-12] 1,000 mcg Tablet 1,000 mcg PO DAILY aspirin 81 mg Tablet,Delayed Release (Dr/Ec) 81 mg PO DAILY fluticasone propionate [Flonase Allergy Relief] 50 mcg/actuation Mangum,Suspension 2 spray INTRANASAL DAILY PRN (Reason: Nasal Congestion) Rx Instructions: administer into each nostril loratadine 10 mg Tablet 10 mg PO DAILY cholecalciferol (vitamin D3) [Vitamin D3] 25 mcg (1,000 unit) Capsule 25 mcg PO DAILY warfarin 2.5 mg tablet 1.25 - 2.5 mg PO DIRECTED Qty: 0 0RF Rx Instructions: Take 1/2 tablet on Sundays and Wednesdays, then 1 full tablet on all other days. Changed lisinopril 10 mg tablet 10 mg PO DAILY Qty: 30 1RF Discontinued amoxicillin-pot clavulanate 875-125 mg tablet 1 tab PO BID Qty: 14 0RF metoprolol tartrate 25 mg tablet 25 mg PO BID divalproex 250 mg Tablet,Delayed Release (Dr/Ec) 250 mg PO BID Discharge Orders: Discharge Order (Routine); Ordered 03/25/25 Ordered By: Casimiro Gramajo/Other Patient Handouts: Valproate Extended Release Oral Tablet, Delirium and Dementia, Heart Block 2nd Degree Admission Data Admit Date/Time: 03/19/25 16:26 Attending Provider: Casimiro Bird Admit Provider: Haris Johnson Primary Care Provider: Darnell Allen Other Providers: Haris Johnson; Benjamin Borjas; Neal Bear; Jovany Samuels; Braxton Mena; Brennon Sheikh Jr; Pilo Bernard; Carrie Chirinos; Jyothi Paris; Panda Adkins; Panda Rider; Jeannie Apple; Mat Wei; Tiara Galeas; Mat Sherman; Pedro Villa; Mickey Elizabeth; Abram Tate; Caleb Alas; Yanely Morillo; Michelle Beyer; [employer]; [facility]; [place]; [facility] Fax Other Interventions: Discharge Summary Assessment (RN) Last Done: 03/25/25 14:08 Hospital Stay Data Consultations Cardiology PT/OT Procedures Performed Echocardiogram: -EF 55-60% -grade 1 diastolic dysfunction -normal LV wall motion -normal valve function Diagnostic Imagining Performed Cervical Spine CT 03/19/25 14:36 CT SCAN OF THE CERVICAL SPINE CLINICAL HISTORY: Fall. COMPARISON STUDY: Cervical spine CT November 25, 2023. TECHNIQUE: CT scan of the cervical spine is performed from the skull base to the upper thoracic spine. Images are reviewed in the axial, sagittal, and coronal planes. IV contrast was not administered for this examination. A dose lowering technique was utilized adhering to the principles of ALARA. FINDINGS: Evaluation of the mid to lower cervical spine is mildly compromised due to artifact. However, no acute fractures within the cervical spine are identified. Severe multilevel disc space, endplate osteophytosis and facet arthrosis is again noted. Degenerative changes at the C1-C2 articulation are similar to prior CT. Facet joints are intact. There is no prevertebral edema. Old bilateral clavicular and upper rib fractures are again noted. IMPRESSION: 1. No acute cervical spine fracture or subluxation. Exam mildly compromised by artifact. 2. Moderate to severe multilevel degenerative changes within the cervical spine. ACT 112: Negative or not required by law. Electronically signed by: Phong Daigle M.D. 03/19/2025 3:29 PM Chest X-Ray 03/19/25 14:36 XR chest 1V portable CLINICAL HISTORY: weakness COMPARISON STUDY: Chest CT February 14, 2011. Chest radiograph December 05, 2023. FINDINGS: Elevation of the right hemidiaphragm is unchanged. Blunting the right costophrenic angle is also unchanged. There is no pneumothorax or definite pleural effusion. Cardiomegaly is again noted. There is no evidence for pulmonary edema. There is no lobar consolidation. Old bilateral rib and left clavicular fractures are incidentally noted. Severe osteoarthritis of both glenohumeral joints. IMPRESSION: 1. No acute cardiopulmonary findings. 2. No significant change in elevation of the right hemidiaphragm. 3. Multiple old bilateral rib fractures. ACT 112: Negative or not required by law. Electronically signed by: Phong Daigle M.D. 03/19/2025 3:[address] 03/19/25 14:36 CT SCAN OF THE BRAIN WITHOUT IV CONTRAST CLINICAL HISTORY: Head trauma, unsteady gait. COMPARISON STUDY: 11/25/2023 TECHNIQUE: Unenhanced axial CT scan of the brain was performed from the vertex to the skull base. A dose lowering technique was utilized adhering to the principles of ALARA. CT DOSE: 1860.21 mGy.cm FINDINGS: No intra or extra-axial mass lesions are visualized. There is no CT evidence of acute cortical infarction. There is no midline shift. There is no acute hemorrhage. No orbital lesions are visualized. There are minor periventricular white matter hypodensities likely on a small vessel basis. No calvarial fractures are visualized. There is partial opacification of several ethmoid air cells. There is mild right maxillary sinus mucosal thickening. IMPRESSION: No acute intracranial findings. ACT 112: Negative or not required by law. Electronically signed by: Ulises Dubon M.D. 03/19/2025 3:21 PM Hip/Pelvis X-Ray 03/19/25 14:36 XR hip 1V LT w pelvis CLINICAL HISTORY: fall pain. COMPARISON: None FINDINGS: The bones appear osteopenic. There are moderately extensive vascular calcifications present. No acute fractures or subluxations are visualized. There are advanced degenerative changes present within the lumbar spine. IVC filter is visualized. IMPRESSION: 1. No acute fractures or dislocations. ACT 112: Negative or not required by law. Electronically signed by: Ulises Dubon M.D. 03/19/2025 3:[address] 03/21/25 13:04 CT lumbar spine wo con CLINICAL HISTORY: Recent fall, lumbar back pain. COMPARISON STUDY: Lumbar spine radiographs November 17, 2016. CT of the abdomen and pelvis January 31, 2017. TECHNIQUE: Axial images of the lumbar spine were obtained without IV contrast. Sagittal and coronal reformats were viewed. A dose lowering technique was utilized adhering to the principles of ALARA. FINDINGS: For purposes of numbering on this exam, the L5-S1 disc space is assigned to axial image 289 of 362. This exam is mildly compromised by artifact. Mild lumbar spine levoscoliosis is noted. No acute lumbar spine fractures are present. There are no suspicious osseous lesions. Mild anterolisthesis of L4 on L5 is unchanged since CT of January 31, 2017. This is due to severe facet arthrosis. There is severe multilevel facet arthrosis within lumbar spine. Mild concavity of the T12 endplates as well as the superior plate of L1 is unchanged. Central canal and neural foramen are suboptimally assessed given CT technique. IVC filter is incidentally noted. Sacroiliac joints are intact. Paravertebral soft tissues are unremarkable by CT. Several old left-sided transverse process deformities are present. IMPRESSION: 1. No acute lumbar spine fracture or subluxation. Exam mildly compromised by artifact. 2. Severe multilevel facet arthrosis and moderate degenerative disc disease within the lumbar spine. 3. Mild lumbar spine levoscoliosis. ACT 112: Negative or not required by law. Electronically signed by: Phong Daigle M.D. 03/21/2025 2:[address] 03/21/25 13:04 CT pelvis wo con CLINICAL HISTORY: recent fall, pelvic pain COMPARISON STUDY: CT scan dated 01/31/2017 FINDINGS: Helical images were acquired in transverse plane. Sagittal and coronal reformatted images were acquired. An IVC filter is visualized. There is no evidence of SI joint diastases. Anterior angulation segment remains unchanged from 2017 is therefore felt to be old. There are extensive vascular calcifications present. There is a fat-containing left inguinal hernia. No acute fractures are visualized. Degenerative changes are present in the spine. There is lower lumbar spinal stenosis. IMPRESSION: 1. No acute fractures identified. ACT 112: Negative or not required by law. Electronically signed by: Ulises Dubon M.D. 03/21/2025 2:29 PM Pending Results Patient Have Any Pending Studies at Discharge: Yes (vitamin B1 (thiamine) level ) Discharge Instructions Given to Patient (Per Discharging Provider) Mr Addleman, You were hospitalized due to bradycardia (slow heart rate). This quickly resolved after stopping your metoprolol medicine. You remained stable on the heart monitor for the rest of your hospital stay. We did see a few episodes of something called "AV block." There are various types of AV block but the type we saw is not harmful. We specifically saw type 1 second degree AV block. After speaking with cardiology we are recommending that you wear a heart monitor at home to ensure you do not have other more serious forms of heart block. The more serious forms often lead to pacemaker placement. Again the type that we identified while you were here is not harmful nor does it typically cause symptoms. During your stay you had severe delirium (see handout on delirium & dementia). People with memory trouble/dementia are very prone to delirium in the hospital. The delirium improved over time. We did change your valproate DR 250mg twice daily to valproate ER 500mg once nightly at bedtime. You did well on this new formulation. Recommendations: 1. LOWER your lisinopril to 10mg once daily (you previously took 40mg once daily). New prescription sent to the [facility] for you. 2. STOP your metoprolol. 3. STOP valproate DR 250mg twice daily. 4. START valproate (divalproex) ER 500mg once daily at bedtime. New prescription sent to [facility]. 5. To help promote better sleep you may want to take ijtl-war-aihruna melatonin 5mg at bedtime each night. You received this here and did well on it. 6. Use a walker when you walk around the house or outside. 7. For yeast rash in groin may use nystatin powder three times daily for about 1 week. 8. Coumadin - -today, 03/25/25 - take HALF TABLET (1.25mg) at your usual time -tomorrow and thereafter resume your usual dosing schedule 9. Please have your family doctor check your valproic acid level in 5-7 days. 10. Wear the heart monitor at home as directed. Follow-up - see separate section Return to [facility] if - -you have fever over 100 degrees -you have more falls or difficulty walking -you have worsening shortness of breath or chest pain -you develop severe diarrhea (3 or more liquid stools in 24 hours) -you have dizziness or lightheadedness -any other concerns It was our pleasure to care for you! -Casimiro Bird Total Time Total Time Spent Total Time Spent (In Minutes): 50 Total Time Includes: Examination of the Patient, Discharge Planning, Medication Reconciliation and Communication With Other Providers Coding Level of Care Code 14751 INP/OBS DISCH >30 MIN Diagnoses Bradycardia R00.1 Acute encephalopathy G93.40 Dementia G30.9; F02.80 Alzheimer's disease onset: unspecified onset Dementia behavioral or psychological symptom: unspecified whether behavioral, psychotic, or mood disturbance or anxiety Dementia severity: unspecified severity Dementia type: Alzheimer's Acute heart failure with preserved ejection fraction (HFpEF) I50.31 Traumatic ecchymosis of left thigh S70.12XA BPH (benign prostatic hyperplasia) N40.0 DVT (deep venous thrombosis) I82.409 Factor V Leiden mutation D68.51 History of pulmonary embolus (PE) Z86.711 Low back pain M54.50 Jeanie rash of groin B37.89
[2025-03-25] MEDS ORDERED: WARFARIN SOD 1.25 MG TAB PO SCH (16:00)
== END 2025-03-25 15:18 | disposition home health service (06) ==
LOC: ED 14:30 → INTOOBSV 16:26 → 2E 16:26 → SUATTDRO 16:26 → 2E 17:52